=== PATIENT | male | born 1955 | race American Indian/Alaskan Native ===

== ENCOUNTER 2020-11-18 09:26 | Emergency (ER) | payer MEDICAID, SELFPAY ==
[2020-11-18 09:46] VITALS: PULSE 76; RESP 18; TEMP 36.8; O2SAT 94; BMI 29.7
--- NOTE | 2020-11-18 09:57 | W.ED.COVID ---
HPI - COVID General: Chief Complaint: COVID symptoms Stated Complaint: Covid+/ fever/Cough/Fatigue Time Seen by Provider: 11/18/20 09:36 Triage information: Has fever, cough or shortness of breath. Exposure to COVID + person last 14 days History of Present Illness: HPI Narrative: 65-year-old male presents to the emergency room with complaint of fever. Last week he was tested for COVID-19 as well as strep and tested positive for both he completed the course of antibiotics for the strep he still is having a fever at times still has sore throat nausea vomiting and cough. Patient denies history of diabetes hypertension chronic respiratory illness is not on any immune depressants. MD complaint: known COVID positive Prior testing date: 11/11/20 COVID 19 common symptoms: positive fever(s), chills, cough, non-productive cough, dyspnea, fatigue, body aches, throat pain, nasal congestion, nausea and vomiting COVID 19 other sytmptoms: negative chest pain or requiring oxygen Onset (ago): day(s) (+10d) Severity: mild Treatment prior to arrival: antibiotics (For positive strep test) COVID Results: No Data to Display Review of Systems Const: Reports: fever(s), chills, body aches and fatigue ENMT: Reports: throat pain and nasal congestion Card: Denies: chest pain, edema, dyspnea on exertion or orthopnea Resp: Reports: dyspnea and non-productive cough GI: Reports: nausea and vomiting : Denies: flank pain, dysuria, urinary frequency or urinary urgency Skin/Breast: Denies: rash or pruritus Physical Exam Const: COMMON NORMALS: no acute distress GENERAL APPEARANCE: cooperative and comfortable ORIENTATION/CONSCIOUSNESS: Yes awake, Yes oriented to person, Yes oriented to place and Yes oriented to time HENMT: COMMON NORMALS: normocephalic, atraumatic and hearing grossly normal bilaterally HEAD & SCALP: normocephalic and atraumatic Neck/C-Spine: COMMON NORMALS: no JVD Resp: COMMON NORMALS: normal respiratory effort, No retractions, No use of accessory muscles and clear to auscultation bilaterally AUSCULTATION: clear to auscultation bilaterally Cardio: COMMON NORMALS: no JVD, regular rate, regular rhythm and No murmurs present (Cardio) RATE: regular rate RHYTHM: regular rhythm GI: COMMON NORMALS: Soft to palpation and No hepatosplenomegaly present AUSCULTATION: Yes normoactive bowel sounds PALPATION: Yes Soft to palpation, No Tenderness to palpation present (GI), No Guarding due to palpation present (GI) and Yes No hepatosplenomegaly present Extremity: COMMON NORMALS: normal to inspection, capillary refill normal, no clubbing, cyanosis or edema, no calf tenderness and no pedal edema Neuro: SENSORIUM/ORIENTATION: Yes oriented to person, Yes oriented to place and Yes oriented to time Skin: COMMON NORMALS: no rashes or lesions noted GENERAL SKIN EXAM: no rashes or lesions noted Course Vital Signs: Vital signs: Vital Signs Temperature 98.2 F 11/18/20 09:46 Pulse Rate 76 11/18/20 09:46 Respiratory Rate 18 11/18/20 09:46 Pulse Oximetry 94 11/18/20 09:46 MDM - COVID MDM Narrative: Medical decision making narrative: Patient largely has Covid symptoms examination of the throat does not show any significant redness or erythema he has no submandibular lymphadenopathy he is completed the course of antibiotics previously prescribed I would continue with supportive cares. He does not qualify for bam whenever Mab infusion based on his age past medical history and he has an exclusion of being at or greater than 10 days since onset of symptoms. We will go ahead and discharge him home return if has problems. COVID Results: No Data to Display Discharge Plan Discharge Patient Disposition: Home Clinical Impression: COVID-19, Strep pharyngitis Condition: Stable Discharge Orders: Discharge ED (Routine); Ordered 11/18/20 Ordered By: Ángel Ivy Discharge Diet: Usual diet Discharge Activity: Limit activity as instructed Activity Restrictions/Additional Instructions: Tylenol or ibuprofen as needed increase fluid intake. Maintain quarantine as directed by the health department. Return to the emergency room if you have further problems or worsening shortness of breath. Coding Level of Care Code ED Boil [employer] for Carley Gusman
[2020-11-18 10:05] VITALS: RESP 18
[2020-11-18 10:09] VITALS: O2SAT 94
== END 2020-11-18 10:05 | disposition home or self-care (01) ==
LOC: ER 10:10
PROVIDERS: Emergency Provider Family Medicine
DX: U07.1 COVID-19 (principal); J02.0 Streptococcal pharyngitis
CPT/HCPCS: 12345; 99281

== ENCOUNTER 2020-11-23 10:08 | Inpatient (IN) | payer MEDICAID, SELFPAY ==
[2020-11-23] VITALS (14 sets, daily range): BP systolic 111–151; BP diastolic 73–103; PULSE 69–101; RESP 18–20; TEMP 36.8–38.5; O2SAT 83–97; BMI 23.5
--- NOTE | 2020-11-23 10:29 | ECG_ITS ---
[facility] Test Date: 2020-11-23 Pat Name: Martin Paul Department: Room: Gender: Male Customer Trainer: : 1955 Requested By: Wendy Tran Order Number: [id number] Reading MD: BIBI SOL Measurements Intervals [place] Rate: 90 P: 44 [place]: 129 QRS: -37 QRSD: 126 T: -2 QT: 371 QTc: 455 Interpretive Statements SINUS RHYTHM LEFT AXIS DEVIATION [QRS AXIS < -30] RIGHT BUNDLE BRANCH BLOCK [120+ ms QRS DURATION, UPRIGHT V1, 40+ ms S IN I/aVL/V4/V5/V6] No previous ECG available for comparison Electronically Signed On 11-23-2020 18:16:10 CONSTRUCTION TECH by BIBI SOL [email or web address]
--- NOTE | 2020-11-23 10:29 | W.ED.COVID ---
Documented by User: CASSY Aldridge 11/23/20 14:52 HPI - COVID General: Chief Complaint: ER Hold Stated Complaint: Weakness/SOB/ covid symtoms Time Seen by Provider: 11/23/20 10:16 Source: patient Mode of arrival: ambulatory Limitations: no limitations Triage information: Has fever, cough or shortness of breath. Exposure to COVID + person last 14 days History of Present Illness: HPI Narrative: Patient is a 65-year-old male who tested positive for COVID on 11/11 here for complaints of diffuse body aches, shortness of breath, and fevers. Patient was seen here at our facility approximately 5 days ago for COVID but appeared stable at that visit. Provider stated he did not qualify for IV remdesivir or outpatient BAM infusion and was discharged home. Patient tells me since that visit he has continued to worsen. He has been taking oral Tylenol but states he cannot keep it down because he gags. Patient feels like he cannot take a deep breath. MD complaint: known COVID positive Prior covid testing: yes, results known Prior testing date: 11/11/19 COVID 19 common symptoms: positive fever(s), chills, cough, productive cough, dyspnea, fatigue, body aches and headache(s); negative nausea or vomiting COVID 19 other sytmptoms: negative chest pain or confusion Onset (ago): day(s) Severity: moderate Treatment prior to arrival: acetaminophen COVID Results: SARS-CoV-2 Antigen (Rapid) Negative (Negative) 11/23/20 11:20 11/23/20 Review of Systems Const: Reports: fever(s), chills, body aches, fatigue and malaise Eyes: Denies: change in vision, blurry vision or photophobia ENMT: Denies: odynophagia Card: Reports: dyspnea on exertion; Denies: chest pain, palpitations, irregular heart rhythm, edema, swelling of feet/ankles, lightheadedness, syncope, pre-syncope, orthopnea or leg pain with exertion Resp: Reports: dyspnea, productive cough and chest congestion; Denies: wheezing, stridor or hemoptysis GI: Denies: abdominal pain, nausea or vomiting : Denies: flank pain, difficulty urinating, dysuria, urinary frequency or urinary urgency Musc: Denies: neck pain or back pain Skin/Breast: Denies: rash Neuro: Reports: headache(s); Denies: numbness in extremities, weakness in extremities, sensory changes, difficulty walking, dizziness or confusion PFSH ED PFSH: Medical History No significant medical problems Surgical History H/O foot surgery 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 H/O Spinal surgery Family History Other Diabetes Social History Smoking and tobacco status: former smoker Alcohol intake: never Substance/Drug Use: never Lives independently: Yes Household members: family and other Details: brother Marital status: Current occupational status: retired Physical Exam Const: COMMON NORMALS: average body habitus, patient oriented x3, no limitations, healthy appearing, alert and well nourished GENERAL APPEARANCE: cooperative ORIENTATION/CONSCIOUSNESS: Yes awake, Yes oriented to person, Yes oriented to place and Yes oriented to time OTHER: mildly ill appearing HENMT: COMMON NORMALS: normocephalic, atraumatic and EAC's normal HEAD & SCALP: normal to inspection, normocephalic and atraumatic EXTERNAL AUDITORY CANAL: EAC's normal Chest: COMMONS NORMALS: normal inspection of the chest and normal palpation of entire chest wall Resp: EFFORT & INSPECTION: Yes respiratory distress (mild), Yes labored, Yes Actively coughing and Yes other (hypoxic) AUSCULTATION: diminished lung sounds Cardio: COMMON NORMALS: regular rhythm RATE: tachycardic (mild) RHYTHM: regular rhythm Neuro: COMMON NORMALS: patient oriented x3 SENSORIUM/ORIENTATION: Yes alert, Yes oriented to person, Yes oriented to place and Yes oriented to time Skin: COMMON NORMALS: no rashes or lesions noted GENERAL SKIN EXAM: no rashes or lesions noted Course Vital Signs: Vital signs: Vital Signs Temperature 98.6 F 11/23/20 21:44 Pulse Rate 75 11/23/20 23:59 Respiratory Rate 18 11/23/20 23:59 Blood Pressure 151/80 11/23/20 21:44 Pulse Oximetry 90 11/23/20 23:59 MDM - COVID MDM Narrative: Medical decision making narrative: Patient is in respiratory failure secondary to COVID. He was still only satting 88% on 5L NC so was placed on a non-rebreather. Patient will require hospitalization at this time. I have spoken to Dr. Russell who will also evaluate patient speak to hospitalist. Lab Data: Labs: Lab Results 11/23/20 11/23/20 11/23/20 Range/Units 11:20 11:21 11:40 WBC 3.9 L (4.0-10.0) 10^3/ uL RBC 5.03 (4.1-5.3) 10^6/u L Hgb 14.6 (11.7-16.6) g/dL Hct 43.5 (42.0-52.0) % MCV 86.5 (80-94) fL MCH 29.0 (28.0-34.0) pg MCHC 33.6 (30.0-36.0) g/dL RDW 12.2 (12.1-15.1) % Plt Count 224 (130-400) 10^3/c mm MPV 9.3 (7.4-10.4) fL Neut % (Auto) 82.6 % Lymph % (Auto) 10.9 % Butts % (Auto) 5.7 % Eos % (Auto) 0.0 % Baso % (Auto) 0.3 % Neut # (Auto) 3.20 (1.8-7.7) 10^3/u L Lymph # (Auto) 0.4 L (0.8-4.8) 10^3/u L Butts # (Auto) 0.2 (0.2-0.9) 10^3/u L Eos # (Auto) 0.0 (0.0-0.8) 10^3/u L Baso # (Auto) 0.0 (0.0-0.1) 10^3/u L Nucleated RBC % (a uto) 0 % Nucleated RBCs # 0.0 /100WBC PT (12.1-14.9) SECO NDS INR (0.8-1.2) APTT (23.9-36.7) SECO NDS Fibrinogen (174-498) mg/dL D-Dimer (0-0.59) ug/mIFE U Specimen Type Sample Site ABG pH (7.35-7.45) ABG pCO2 (35-45) mmHg ABG pO2 (80.0-100.0) mmH g ABG HCO3 (22-26) mmol/L ABG O2 Saturation ABG Base Excess (-2.0-2.0) mmol/ L Yassine Test A-a O2 Gradient (5-10) mmHg Hematocrit (42-52) % Hgb O2 Saturation (95-100) % Carboxyhemoglobin (0.4-20.1) %THgb Methemoglobin (0.4-1.5) % Total Hemoglobin (14-18) g/dL Ionized Calcium (1.1-1.4) mmol/L O2 Delivery Device O2 Liters/Min % [employer] Machine Operator ID Sodium (136-145) mmol/L Potassium (3.5-5.1) mmol/L Chloride (98-107) mmol/L Carbon Dioxide (22-29) mmol/L Anion Gap (5-19) BUN (8-23) mg/dL Creatinine (0.7-1.2) mg/dL GFR Calculation (90-130) mL/min Glucose (65-115) mg/dL Calculated Osmolal ity (285-295) mOsm/k g Lactic Acid (0.5-2.2) mmol/L Calcium (8.5-10.5) mg/dL Total Bilirubin (0.15-1.2) mg/dL AST (0-40) U/L ALT (0-41) U/L Alkaline Phosphata se (40-130) IU/L Creatine Kinase (39-308) U/L Troponin T Baselin e (0-15) ng/L C-Reactive Protein (0.0-4.9) mg/L Total Protein (6.6-8.7) g/dL Albumin (3.5-5.2) g/dL Globulin (1.3-4.6) g/dL Procalcitonin (0-0.5) ng/mL Influenza Type A A g Negative (Negative) Influenza Type B A g Negative (Negative) SARS-CoV-2 Ag (Rap id) Negative (Negative) 11/23/20 11/23/20 11/23/20 Range/Units 11:40 11:40 11:40 WBC (4.0-10.0) 10^3/ uL RBC (4.1-5.3) 10^6/u L Hgb (11.7-16.6) g/dL Hct (42.0-52.0) % MCV (80-94) fL MCH (28.0-34.0) pg MCHC (30.0-36.0) g/dL RDW (12.1-15.1) % Plt Count (130-400) 10^3/c mm MPV (7.4-10.4) fL Neut % (Auto) % Lymph % (Auto) % Butts % (Auto) % Eos % (Auto) % Baso % (Auto) % Neut # (Auto) (1.8-7.7) 10^3/u L Lymph # (Auto) (0.8-4.8) 10^3/u L Butts # (Auto) (0.2-0.9) 10^3/u L Eos # (Auto) (0.0-0.8) 10^3/u L Baso # (Auto) (0.0-0.1) 10^3/u L Nucleated RBC % (a uto) % Nucleated RBCs # /100WBC PT 13.80 (12.1-14.9) SECO NDS INR 1.03 (0.8-1.2) APTT 31.7 (23.9-36.7) SECO NDS Fibrinogen 576 H (174-498) mg/dL D-Dimer 0.63 H (0-0.59) ug/mIFE U Specimen Type Sample Site ABG pH (7.35-7.45) ABG pCO2 (35-45) mmHg ABG pO2 (80.0-100.0) mmH g ABG HCO3 (22-26) mmol/L ABG O2 Saturation ABG Base Excess (-2.0-2.0) mmol/ L Yassine Test A-a O2 Gradient (5-10) mmHg Hematocrit (42-52) % Hgb O2 Saturation (95-100) % Carboxyhemoglobin (0.4-20.1) %THgb Methemoglobin (0.4-1.5) % Total Hemoglobin (14-18) g/dL Ionized Calcium (1.1-1.4) mmol/L O2 Delivery Device O2 Liters/Min % [employer] Machine Operator ID Sodium 135 L (136-145) mmol/L Potassium 3.9 (3.5-5.1) mmol/L Chloride 98 (98-107) mmol/L Carbon Dioxide 25 (22-29) mmol/L Anion Gap 15.9 (5-19) BUN 18 (8-23) mg/dL Creatinine 0.7 (0.7-1.2) mg/dL GFR Calculation 113.9 (90-130) mL/min Glucose 126 H (65-115) mg/dL Calculated Osmolal ity 283 L (285-295) mOsm/k g Lactic Acid 1.5 (0.5-2.2) mmol/L Calcium 8.0 L (8.5-10.5) mg/dL Total Bilirubin 0.6 (0.15-1.2) mg/dL AST 79 H (0-40) U/L ALT 54 H (0-41) U/L Alkaline Phosphata se 74 (40-130) IU/L Creatine Kinase 238 (39-308) U/L Troponin T Baselin e (0-15) ng/L C-Reactive Protein 75.0 H (0.0-4.9) mg/L Total Protein 5.9 L (6.6-8.7) g/dL Albumin 3.4 L (3.5-5.2) g/dL Globulin 2.5 (1.3-4.6) g/dL Procalcitonin 6.09 H (0-0.5) ng/mL Influenza Type A A g (Negative) Influenza Type B A g (Negative) SARS-CoV-2 Ag (Rap id) (Negative) 11/23/20 11/23/20 Range/Units 11:40 13:07 WBC (4.0-10.0) 10^3/ uL RBC (4.1-5.3) 10^6/u L Hgb (11.7-16.6) g/dL Hct (42.0-52.0) % MCV (80-94) fL MCH (28.0-34.0) pg MCHC (30.0-36.0) g/dL RDW (12.1-15.1) % Plt Count (130-400) 10^3/c mm MPV (7.4-10.4) fL Neut % (Auto) % Lymph % (Auto) % Butts % (Auto) % Eos % (Auto) % Baso % (Auto) % Neut # (Auto) (1.8-7.7) 10^3/u L Lymph # (Auto) (0.8-4.8) 10^3/u L Butts # (Auto) (0.2-0.9) 10^3/u L Eos # (Auto) (0.0-0.8) 10^3/u L Baso # (Auto) (0.0-0.1) 10^3/u L Nucleated RBC % (a uto) % Nucleated RBCs # /100WBC PT (12.1-14.9) SECO NDS INR (0.8-1.2) APTT (23.9-36.7) SECO NDS Fibrinogen (174-498) mg/dL D-Dimer (0-0.59) ug/mIFE U Specimen Type Arterial Sample Site Radial, left ABG pH 7.51 H (7.35-7.45) ABG pCO2 34.5 L (35-45) mmHg ABG pO2 71.1 L (80.0-100.0) mmH g ABG HCO3 27.8 H (22-26) mmol/L ABG O2 Saturation 97.1 ABG Base Excess 5.0 H (-2.0-2.0) mmol/ L Yassine Test Pos A-a O2 Gradient 4.7 L (5-10) mmHg Hematocrit 44.7 (42-52) % Hgb O2 Saturation 95.3 (95-100) % Carboxyhemoglobin 1.2 (0.4-20.1) %THgb Methemoglobin 0.7 (0.4-1.5) % Total Hemoglobin 14.6 (14-18) g/dL Ionized Calcium 1.1 (1.1-1.4) mmol/L O2 Delivery Device Nrb O2 Liters/Min 15.0 % [employer] Machine Operator ID Cak Sodium 137.0 (136-145) mmol/L Potassium 3.6 (3.5-5.1) mmol/L Chloride (98-107) mmol/L Carbon Dioxide (22-29) mmol/L Anion Gap (5-19) BUN (8-23) mg/dL Creatinine (0.7-1.2) mg/dL GFR Calculation (90-130) mL/min Glucose 123.0 H (65-115) mg/dL Calculated Osmolal ity (285-295) mOsm/k g Lactic Acid (0.5-2.2) mmol/L Calcium (8.5-10.5) mg/dL Total Bilirubin (0.15-1.2) mg/dL AST (0-40) U/L ALT (0-41) U/L Alkaline Phosphata se (40-130) IU/L Creatine Kinase (39-308) U/L Troponin T Baselin e 7 (0-15) ng/L C-Reactive Protein (0.0-4.9) mg/L Total Protein (6.6-8.7) g/dL Albumin (3.5-5.2) g/dL Globulin (1.3-4.6) g/dL Procalcitonin (0-0.5) ng/mL Influenza Type A A g (Negative) Influenza Type B A g (Negative) SARS-CoV-2 Ag (Rap id) (Negative) Imaging Data: CXR: Radiologist's impression: [address] [address] XRay Report Signed Patient: Luis Paul #: [id number] : 1955cct#:[id number] Age/Sex: 65 / MADM Date: 11/23/20 Loc: [facility]/Bed: Attending Dr: Ordering Provider/Ordering MD: Wendy Tran Date of Service: 11/23/20 Procedure(s): XR chest 1V portable [id number] Accession Number(s): [id number] Report Number: [id number] PROCEDURE INFORMATION: Exam: XR Chest, 1 View Exam date and time: 11/23/2020 10:48 AM Age: 65 years old Clinical indication: Shortness of breath; Additional info: Covid TECHNIQUE: Imaging protocol: XR of the chest Views: 1 view. COMPARISON: No relevant prior studies available. FINDINGS: Lungs: There is mild hazy interstitial prominence greater on the right side which could indicate an early or developing interstitial pneumonia. Pleural space: Unremarkable. No pleural effusion. No pneumothorax. Heart/Mediastinum: Unremarkable. No cardiomegaly. Bones/joints: Unremarkable. XR/XR chest 1V portable [id number] IMPRESSION: Mild haziness of the pulmonary interstitium suggesting mild or early interstitial pneumonia. Dictated By:Donovan Mitchell Signed By:Donovan MitchellSignmychal Date/Time:11/23/20 1135 DD/ 1134 COVID Results: SARS-CoV-2 Antigen (Rapid) Negative (Negative) 11/23/20 11:20 11/23/20 Discharge Plan Discharge Patient Disposition: Admitted As Inpatient Admit Provider: Obey Carroll Clinical Impression: COVID-19, Sepsis, Respiratory failure, unspecified with hypoxia Condition: Stable Coding Level of Care Code ED Automotive Warranty Administrator for Chg Fwd Exam Detailed Documented by User: Estefany Russell MD, [facility] [place] 11/24/20 00:29 HPI - COVID General: Chief Complaint: ER Hold Stated Complaint: Weakness/SOB/ covid symtoms Time Seen by Provider: 11/23/20 10:16 COVID Results: SARS-CoV-2 Antigen (Rapid) Negative (Negative) 11/23/20 11:20 11/23/20 [facility] ED PFSH: Medical History No significant medical problems Surgical History H/O foot surgery 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 H/O Spinal surgery Family History Other Diabetes Social History Smoking and tobacco status: former smoker Alcohol intake: never Substance/Drug Use: never Lives independently: Yes Household members: family and other Details: brother Marital status: Current occupational status: retired Course Vital Signs: Vital signs: Vital Signs Temperature 98.6 F 11/23/20 21:44 Pulse Rate 75 11/23/20 23:59 Respiratory Rate 18 11/23/20 23:59 Blood Pressure 151/80 11/23/20 21:44 Pulse Oximetry 90 11/23/20 23:59 MDM - COVID MDM Narrative: Medical decision making narrative: Kindly reviewed the midlevel providers note for complete history and physical. This is a 65-year-old male diagnosed with COVID-19. He is hypoxic and requiring high flow oxygen to maintain his oxygen saturation. He is admitted to the viral ICU for evaluation and management of his Covid pneumonia. Medical Records: Attestation: I reviewed the patient's medical records. Lab Data: Attestation: I reviewed the patient's lab results. Labs: Lab Results 11/23/20 11/23/20 11/23/20 Range/Units 11:20 11:21 11:40 WBC 3.9 L (4.0-10.0) 10^3/ uL RBC 5.03 (4.1-5.3) 10^6/u L Hgb 14.6 (11.7-16.6) g/dL Hct 43.5 (42.0-52.0) % MCV 86.5 (80-94) fL MCH 29.0 (28.0-34.0) pg MCHC 33.6 (30.0-36.0) g/dL RDW 12.2 (12.1-15.1) % Plt Count 224 (130-400) 10^3/c mm MPV 9.3 (7.4-10.4) fL Neut % (Auto) 82.6 % Lymph % (Auto) 10.9 % Butts % (Auto) 5.7 % Eos % (Auto) 0.0 % Baso % (Auto) 0.3 % Neut # (Auto) 3.20 (1.8-7.7) 10^3/u L Lymph # (Auto) 0.4 L (0.8-4.8) 10^3/u L Butts # (Auto) 0.2 (0.2-0.9) 10^3/u L Eos # (Auto) 0.0 (0.0-0.8) 10^3/u L Baso # (Auto) 0.0 (0.0-0.1) 10^3/u L Nucleated RBC % (a uto) 0 % Nucleated RBCs # 0.0 /100WBC PT (12.1-14.9) SECO NDS INR (0.8-1.2) APTT (23.9-36.7) SECO NDS Fibrinogen (174-498) mg/dL D-Dimer (0-0.59) ug/mIFE U Specimen Type Sample Site ABG pH (7.35-7.45) ABG pCO2 (35-45) mmHg ABG pO2 (80.0-100.0) mmH g ABG HCO3 (22-26) mmol/L ABG O2 Saturation ABG Base Excess (-2.0-2.0) mmol/ L Yassine Test A-a O2 Gradient (5-10) mmHg Hematocrit (42-52) % Hgb O2 Saturation (95-100) % Carboxyhemoglobin (0.4-20.1) %THgb Methemoglobin (0.4-1.5) % Total Hemoglobin (14-18) g/dL Ionized Calcium (1.1-1.4) mmol/L O2 Delivery Device O2 Liters/Min % [employer] Machine Operator ID Sodium (136-145) mmol/L Potassium (3.5-5.1) mmol/L Chloride (98-107) mmol/L Carbon Dioxide (22-29) mmol/L Anion Gap (5-19) BUN (8-23) mg/dL Creatinine (0.7-1.2) mg/dL GFR Calculation (90-130) mL/min Glucose (65-115) mg/dL Calculated Osmolal ity (285-295) mOsm/k g Lactic Acid (0.5-2.2) mmol/L Calcium (8.5-10.5) mg/dL Total Bilirubin (0.15-1.2) mg/dL AST (0-40) U/L ALT (0-41) U/L Alkaline Phosphata se (40-130) IU/L Creatine Kinase (39-308) U/L Troponin T Baselin e (0-15) ng/L C-Reactive Protein (0.0-4.9) mg/L Total Protein (6.6-8.7) g/dL Albumin (3.5-5.2) g/dL Globulin (1.3-4.6) g/dL Procalcitonin (0-0.5) ng/mL Influenza Type A A g Negative (Negative) Influenza Type B A g Negative (Negative) SARS-CoV-2 Ag (Rap id) Negative (Negative) 11/23/20 11/23/20 11/23/20 Range/Units 11:40 11:40 11:40 WBC (4.0-10.0) 10^3/ uL RBC (4.1-5.3) 10^6/u L Hgb (11.7-16.6) g/dL Hct (42.0-52.0) % MCV (80-94) fL MCH (28.0-34.0) pg MCHC (30.0-36.0) g/dL RDW (12.1-15.1) % Plt Count (130-400) 10^3/c mm MPV (7.4-10.4) fL Neut % (Auto) % Lymph % (Auto) % Butts % (Auto) % Eos % (Auto) % Baso % (Auto) % Neut # (Auto) (1.8-7.7) 10^3/u L Lymph # (Auto) (0.8-4.8) 10^3/u L Butts # (Auto) (0.2-0.9) 10^3/u L Eos # (Auto) (0.0-0.8) 10^3/u L Baso # (Auto) (0.0-0.1) 10^3/u L Nucleated RBC % (a uto) % Nucleated RBCs # /100WBC PT 13.80 (12.1-14.9) SECO NDS INR 1.03 (0.8-1.2) APTT 31.7 (23.9-36.7) SECO NDS Fibrinogen 576 H (174-498) mg/dL D-Dimer 0.63 H (0-0.59) ug/mIFE U Specimen Type Sample Site ABG pH (7.35-7.45) ABG pCO2 (35-45) mmHg ABG pO2 (80.0-100.0) mmH g ABG HCO3 (22-26) mmol/L ABG O2 Saturation ABG Base Excess (-2.0-2.0) mmol/ L Yassine Test A-a O2 Gradient (5-10) mmHg Hematocrit (42-52) % Hgb O2 Saturation (95-100) % Carboxyhemoglobin (0.4-20.1) %THgb Methemoglobin (0.4-1.5) % Total Hemoglobin (14-18) g/dL Ionized Calcium (1.1-1.4) mmol/L O2 Delivery Device O2 Liters/Min % [employer] Machine Operator ID Sodium 135 L (136-145) mmol/L Potassium 3.9 (3.5-5.1) mmol/L Chloride 98 (98-107) mmol/L Carbon Dioxide 25 (22-29) mmol/L Anion Gap 15.9 (5-19) BUN 18 (8-23) mg/dL Creatinine 0.7 (0.7-1.2) mg/dL GFR Calculation 113.9 (90-130) mL/min Glucose 126 H (65-115) mg/dL Calculated Osmolal ity 283 L (285-295) mOsm/k g Lactic Acid 1.5 (0.5-2.2) mmol/L Calcium 8.0 L (8.5-10.5) mg/dL Total Bilirubin 0.6 (0.15-1.2) mg/dL AST 79 H (0-40) U/L ALT 54 H (0-41) U/L Alkaline Phosphata se 74 (40-130) IU/L Creatine Kinase 238 (39-308) U/L Troponin T Baselin e (0-15) ng/L C-Reactive Protein 75.0 H (0.0-4.9) mg/L Total Protein 5.9 L (6.6-8.7) g/dL Albumin 3.4 L (3.5-5.2) g/dL Globulin 2.5 (1.3-4.6) g/dL Procalcitonin 6.09 H (0-0.5) ng/mL Influenza Type A A g (Negative) Influenza Type B A g (Negative) SARS-CoV-2 Ag (Rap id) (Negative) 11/23/20 11/23/20 Range/Units 11:40 13:07 WBC (4.0-10.0) 10^3/ uL RBC (4.1-5.3) 10^6/u L Hgb (11.7-16.6) g/dL Hct (42.0-52.0) % MCV (80-94) fL MCH (28.0-34.0) pg MCHC (30.0-36.0) g/dL RDW (12.1-15.1) % Plt Count (130-400) 10^3/c mm MPV (7.4-10.4) fL Neut % (Auto) % Lymph % (Auto) % Butts % (Auto) % Eos % (Auto) % Baso % (Auto) % Neut # (Auto) (1.8-7.7) 10^3/u L Lymph # (Auto) (0.8-4.8) 10^3/u L Butts # (Auto) (0.2-0.9) 10^3/u L Eos # (Auto) (0.0-0.8) 10^3/u L Baso # (Auto) (0.0-0.1) 10^3/u L Nucleated RBC % (a uto) % Nucleated RBCs # /100WBC PT (12.1-14.9) SECO NDS INR (0.8-1.2) APTT (23.9-36.7) SECO NDS Fibrinogen (174-498) mg/dL D-Dimer (0-0.59) ug/mIFE U Specimen Type Arterial Sample Site Radial, left ABG pH 7.51 H (7.35-7.45) ABG pCO2 34.5 L (35-45) mmHg ABG pO2 71.1 L (80.0-100.0) mmH g ABG HCO3 27.8 H (22-26) mmol/L ABG O2 Saturation 97.1 ABG Base Excess 5.0 H (-2.0-2.0) mmol/ L Yassine Test Pos A-a O2 Gradient 4.7 L (5-10) mmHg Hematocrit 44.7 (42-52) % Hgb O2 Saturation 95.3 (95-100) % Carboxyhemoglobin 1.2 (0.4-20.1) %THgb Methemoglobin 0.7 (0.4-1.5) % Total Hemoglobin 14.6 (14-18) g/dL Ionized Calcium 1.1 (1.1-1.4) mmol/L O2 Delivery Device Nrb O2 Liters/Min 15.0 % [employer] Soaping Machine Operator ID Cak Sodium 137.0 (136-145) mmol/L Potassium 3.6 (3.5-5.1) mmol/L Chloride (98-107) mmol/L Carbon Dioxide (22-29) mmol/L Anion Gap (5-19) BUN (8-23) mg/dL Creatinine (0.7-1.2) mg/dL GFR Calculation (90-130) mL/min Glucose 123.0 H (65-115) mg/dL Calculated Osmolal ity (285-295) mOsm/k g Lactic Acid (0.5-2.2) mmol/L Calcium (8.5-10.5) mg/dL Total Bilirubin (0.15-1.2) mg/dL AST (0-40) U/L ALT (0-41) U/L Alkaline Phosphata se (40-130) IU/L Creatine Kinase (39-308) U/L Troponin T Baselin e 7 (0-15) ng/L C-Reactive Protein (0.0-4.9) mg/L Total Protein (6.6-8.7) g/dL Albumin (3.5-5.2) g/dL Globulin (1.3-4.6) g/dL Procalcitonin (0-0.5) ng/mL Influenza Type A A g (Negative) Influenza Type B A g (Negative) SARS-CoV-2 Ag (Rap id) (Negative) COVID Results: SARS-CoV-2 Antigen (Rapid) Negative (Negative) 11/23/20 11:20 11/23/20 Critical Care Time Critical Care Time: Critical Care Time: Yes Total Critical Care Time: 60 Attestation: This case had a high probability of a clinically significant, sudden, or life threatening deterioration of this patient's condition which required my full and direct attention, intervention and personal management. Discharge Plan Discharge Patient Disposition: Admitted As Inpatient Admit Provider: Obey Carroll Clinical Impression: COVID-19, Sepsis, Respiratory failure, unspecified with hypoxia Condition: Stable Coding Level of Care Code ED Automotive Warranty Administrator for Chg Fwd Exam Detailed
[2020-11-23 11:57] LABS: Basophils % 0.3 %; Hematocrit 43.5 % (42.0-52.0); Hemoglobin 14.6 g/dL (11.7-16.6); Lymphocytes # 0.4 10^3/uL (0.8-4.8); Lymphocytes % 10.9 %; Mean Corpuscular HGB Conc 33.6 g/dL (30.0-36.0); Mean Corpuscular Volume 86.5 fL (80-94); Mean Platelet Volume 9.3 fL (7.4-10.4); Monocytes # 0.2 10^3/uL (0.2-0.9); Monocytes % 5.7 %; Neutrophils % 82.6 %; Nucleated Red Blood Cells % 0 %; Platelet Count 224 10^3/cmm (130-400); Red Blood Count 5.03 10^6/uL (4.1-5.3); Red Cell Distribution Width 12.2 % (12.1-15.1); White Blood Count 3.9 10^3/uL (4.0-10.0)
[2020-11-23 12:03] LABS: SARS Covid-2 Antigen Negative (Negative)
[2020-11-23 12:03] LABS: Influenza A by IFA Negative (Negative); Influenza B by IFA Negative (Negative)
[2020-11-23 12:18] LABS: Lactic Sepsis W/Reflex 1.5 mmol/L (0.5-2.2)
[2020-11-23 12:19] LABS: Troponin(5th) Baseline 7 ng/L (0-15)
[2020-11-23 12:21] LABS: INR 1.03 (0.8-1.2); Partial Thromboplastin Time 31.7 SECONDS (23.9-36.7)
[2020-11-23 12:22] LABS: Fibrinogen 576 mg/dL (174-498)
[2020-11-23 12:24] LABS: D Dimer 0.63 ug/mIFEU (0-0.59)
[2020-11-23 12:27] LABS: Procalcitonin 6.09 ng/mL (0-0.5)
--- NOTE | 2020-11-23 12:29 | ECG_ITS ---
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: : 1955 Requested By: Wendy Tran Order Number: [id number] Reading MD: BIBI SOL Measurements Intervals Glady Rate: 89 P: 44 DE: 136 QRS: -25 QRSD: 130 T: -4 QT: 403 QTc: 491 Interpretive Statements SINUS RHYTHM WITH FREQUENT SUPRAVENTRICULAR PREMATURE COMPLEXES BORDERLINE LEFT AXIS DEVIATION [QRS AXIS < -20] RIGHT BUNDLE BRANCH BLOCK [120+ ms QRS DURATION, UPRIGHT V1, 40+ ms S IN I/aVL/V4/V5/V6] Compared to ECG 11/23/2020 10:54:40 No significant changes Electronically Signed On 11-23-2020 18:17:31 PRIVATE BRANCH EXCHANGE SERVICE ADVISOR by BIBI SOL [id number]
[2020-11-23 12:38] LABS: Alanine Aminotransferase 54 U/L (0-41); Albumin Level 3.4 g/dL (3.5-5.2); Alkaline Phosphatase 74 IU/L (40-130); Anion Gap 15.9 (5-19); Aspartate Amino Transferase 79 U/L (0-40); Blood Urea Nitrogen 18 mg/dL (8-23); Carbon Dioxide 25 mmol/L (22-29); Chloride 98 mmol/L (98-107); Creatine Phosphokinase 238 U/L (39-308); Globulin 2.5 g/dL (1.3-4.6); Glomerular Filtration Rate 113.9 mL/min (90-130); Glucose 126 mg/dL (65-115); Osmolality Calculated 283 mOsm/kg (285-295); Potassium 3.9 mmol/L (3.5-5.1); Sodium 135 mmol/L (136-145); Total Bilirubin 0.6 mg/dL (0.15-1.2); Total Protein 5.9 g/dL (6.6-8.7)
[2020-11-23 13:18] LABS: ABG PCO2 34.5 mmHg (35-45); ABG PH Result 7.51 (7.35-7.45); Alveolar-Arterial Oxygen Gradi 4.7 mmHg (5-10); Arterial Blood Gas Hematocrit 44.7 % (42-52); Blood Gas Allen Test Pos; Blood Gas Operator Identificat CAK; Blood Gas Sample Site Radial, left; Blood Gas Sample Type Arterial; Carboxyhemoglobin 1.2 %THgb (0.4-20.1); HCO3 ABG 27.8 mmol/L (22-26); HGB O2 Sat 95.3 % (95-100); Ionized Calcium Level - ABG 1.1 mmol/L (1.1-1.4); Methemoglobin 0.7 % (0.4-1.5); Oxygen Device NRB; Oxygen Saturation ABG 97.1; PO2 ABG 71.1 mmHg (80.0-100.0); Potassium Level - ABG 3.6 mmol/L (3.5-5.0); Total Hemoglobin 14.6 g/dL (14-18)
[2020-11-23] MEDS: cefTRIAXone 1,000 MG in sodium chloride 0.9% (plus) 50 ML 100 MG IV (14:06)
--- NOTE | 2020-11-23 16:27 | PC.NURSE ---
EKG done at 1625 and shown to ER doctor
--- NOTE | 2020-11-23 16:29 | ECG_ITS ---
[facility] Test Date: 2020-11-23 Pat Name: Martni Paul Department: Room: Gender: Male Lay Health Advocate: : 1955 Requested By: Wendy Tran Order Number: [id number] Reading MD: BIBI SOL Measurements Intervals [place] Rate: 79 P: 57 WI: 133 QRS: -9 QRSD: 129 T: 8 QT: 416 QTc: 480 Interpretive Statements SINUS RHYTHM WITH OCCASIONAL VENTRICULAR PREMATURE COMPLEXES WITH OCCASIONAL SUPRAVENTRICULAR PREMATURE COMPLEXES RIGHT BUNDLE BRANCH BLOCK [120+ ms QRS DURATION, UPRIGHT V1, 40+ ms S IN I/aVL/V4/V5/V6] Compared to ECG 11/23/2020 12:39:26 Ventricular premature complex(es) now present Electronically Signed On 11-23-2020 18:17:15 FOREST PRODUCTS GATHERER by BIBI SOL [id number]
--- NOTE | 2020-11-23 17:11 | P.HP_ITS ---
Providers/Chief Complaint Chief Complaint: Weakness/SOB/ covid symtoms History of Present Illness Pleasant 65-year-old gentleman without much past medical history, not normally on any medications, was diagnosed with COVID-19 on 11/11, with symptoms starting sometime before that, was treated with Augmentin for possible strep throat, and appears also may have received a dose of ivermectin, presented to ER due to progressive, body aches, shortness of breath, fevers. Was previously assessed and did not qualify for monoclonal antibody infusion. Unfortunately continued to worsen. Noted hypoxic in ER, due to which was started on nonrebreather oxygen. ABG 7.51/34.5/71.1/27.8. Subsequent transition to high flow cannula. Saturations in the low to mid 90s on 80% FiO2, 30 L. D-dimer is 0.63. CRP 75. He has some pleuritic chest discomfort, but no constant pain. Troponin is not elevated, and without positive delta 2 hours. EKG with RBBB, occasional PAC. He is febrile, 1-1.3. Procalcitonin is 6.09. Chest x-ray shows mild haziness of pulmonary interstitium suggesting mild or early interstitial pneumonia. Rapid influenza is negative. Rapid COVID-19 is negative. Due to concern for superimposed bacterial pneumonia he received ceftriaxone dose in ER, 1 g. To me he reports he is currently much more comfortable with a high flow cannula. Reports that he was having quite a bit of diarrhea previously, but this is resolved. Denies any headache. Denies any nausea or vomiting. He is coughing, but cough is nonproductive. He names his brother Toby as surrogate decision maker on his behalf in case he could not make his own decisions. Review of Systems Const: Reports: fever(s), body aches and malaise; Denies: chills Eyes: Denies: change in vision or eye redness ENMT: Denies: throat pain, oral sores or ear or mastoid pain Card: Denies: chest pain, edema, pre-syncope or dyspnea on exertion Resp: Reports: dyspnea, non-productive cough and pain on inspiration; Denies: productive cough, change in phlegm color or hemoptysis GI: Denies: abdominal pain, nausea, vomiting, diarrhea, constipation, hematochezia or melena : Denies: flank pain, difficulty urinating, urinary frequency or hematuria Musc: Reports: joint pain (chronic L ankle pain); Denies: back pain, joint swelling or joint redness Skin/Breast: Denies: rash, sores or new lesions Neuro: Denies: headache(s), numbness in extremities, weakness in extremities, dizziness, confusion or seizure-like activity Endo: Denies: polyuria or polydipsia Nate/Lymph: Denies: easy bleeding or purpura All/Imm: Denies: urticaria, throat swelling or tongue swelling Medications/Allergies Home Medications Medication Instructions Recorded Confirmed Last Taken Type acetaminophen [Tylenol Extra 1,000 mg PO PRN 11/23/20 11/23/20 Unknown History Strength] amoxicillin-pot clavulanate 1 tab PO Q12H 11/23/20 11/23/20 11/22/20 History ascorbic acid (vitamin C) 1,000 mg PO DAILY 11/23/20 11/23/20 11/22/20 History ergocalciferol (vitamin D2) See Rx Instructions .ROUTE .COMPLEX 11/23/20 11/23/20 11/22/20 History ivermectin 12 mg PO ONCE 11/23/20 11/23/20 11/21/20 History zinc amino acid chelate 50 mg PO DAILY 11/23/20 11/23/20 11/22/20 History Allergies Allergy/AdvReac Type Severity Reaction Status Date / Time No Known Allergies Allergy Verified 11/23/20 12:26 PFSH Acute PFSH: Medical History No significant medical problems Surgical History H/O foot surgery 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 H/O Spinal surgery Family History Other Diabetes Social History Smoking and tobacco status: former smoker Alcohol intake: never Substance/Drug Use: never Lives independently: Yes Household members: family and other Details: brother Marital status: Current occupational status: retired Vitals/I&O/Wt Last Vital Signs Temp 98.7 F 11/23/20 14:00 Pulse 75 11/23/20 16:13 Resp 20 H 11/23/20 16:13 BP 143/103 11/23/20 10:15 Pulse Ox 97 11/23/20 16:13 Weight last 48 hrs Weight 68.039 kg Physical Exam Const: COMMON NORMALS: no acute distress, patient oriented x3, healthy appearing and alert GENERAL APPEARANCE: cooperative and comfortable NUTRITIONAL APPEARANCE: overweight ORIENTATION/CONSCIOUSNESS: Yes awake OTHER: With high flow cannula and he is comfortable. Speaking full sentences. HENMT: COMMON NORMALS: oropharynx normal Neck/C-Spine: COMMON NORMALS: no JVD Resp: COMMON NORMALS: normal respiratory effort and clear to auscultation bilaterally AUSCULTATION: clear to auscultation bilaterally Cardio: COMMON NORMALS: no JVD, regular rhythm, S1 normal heart sound present, S2 normal heart sound present and No murmurs present (Cardio) RHYTHM: regular rhythm HEART SOUNDS: S1 normal heart sound present and S2 normal heart sound present GI: COMMON NORMALS: Normal to inspection, nondistended, normoactive bowel sounds present, Soft to palpation and non-tender PALPATION: Yes Soft to palpation Extremity: COMMON NORMALS: no joint enlargement and no pedal edema Neuro: COMMON NORMALS: patient oriented x3 and moves all extremities Skin: COMMON NORMALS: no rashes or lesions noted GENERAL SKIN EXAM: no rashes or lesions noted Data : 11/23/20 11:40 11/23/20 11:40 Micro: Microbiology 11/23/20 11:40 Blood Culture - Preliminary Blood SPECIMEN COLLECTED A&P Assessment and plan (1) Pneumonia due to COVID-19 virus: Oxygen support with heated high flow cannula. Remdesivir, Decadron. Albuterol as needed. If oxygenation stabilizes somewhat consider proning. Admit to viral ICU. Lovenox VT prophylaxis. Monitor CRP, D-dimer. Discussed with patient. He is agreeable with admission and treatment plan. Rdz catheter for accurate I&O. Avoid fluid overload. Status: Acute (2) Respiratory failure, unspecified with hypoxia: As above. PPI GI prophylaxis. Sputum culture. Possible sepsis due to COVID-19. Possible superimposed bacterial pneumonia. Levaquin. Blood culture. Status: Acute Qualifiers: Chronicity: acute Qualified Code(s): J96.01 - Acute respiratory failure with hypoxia (3) Sepsis: Possible sepsis with leukopenia, WBC 3.9. Tachycardia on presentation 101, fever one 1.3. Lactic acid 1.5. Blood culture collected. Antibiotic started. As above. Status: Acute Qualifiers: Acute respiratory failure type: with hypoxia Sepsis acute organ dysfunction status: with acute organ dysfunction Sepsis type: sepsis due to unspecified organism Severe sepsis acute organ dysfunction type: acute re spiratory failure Severe sepsis shock status: without septic shock Qualified Code(s): A41.9 - Sepsis, unspecified organism; R65.20 - Severe sepsis without septic shock; J96.01 - Acute respiratory failure with hypoxia (4) Transaminitis: Mild transaminitis most likely related to COVID-19 infection. Monitor liver parameters. Status: Acute Additional A&P Information Underwent treatment with a course of Augmentin for streptococcal pharyngitis. Attestations Medical Necessity Statement*: Admission of over 2 midnights is admitted for assessment and management of severe COVID-19 pneumonia, respiratory failure, possible superimposed bacterial pneumonia, possible sepsis. Coding Level of Care Code Acute Microsystems Engineer for [facility] Fwd Diagnoses Pneumonia due to COVID-19 virus U07.1; J12.89 Respiratory failure, unspecified with hypoxia J96.01 Chronicity: acute Sepsis A41.9; R65.20; J96.01 Acute respiratory failure type: with hypoxia Sepsis acute organ dysfunction status: with acute organ dysfunction Sepsis type: sepsis due to unspecified organism Severe sepsis acute organ dysfunction type: acute respiratory failure Severe sepsis shock status: without septic shock Transaminitis R74.01
[2020-11-23] MEDS: levoFLOXacin 750 mg Tablet PO (17:13)
[2020-11-23] MEDS: dexamethasone 4 mg/mL INJ 6 MG IVP (17:27)
[2020-11-23] MEDS: remdesivir 200 MG in sodium chloride 0.9% (100 ml) 100 ML 100 MG IV (18:37)
[2020-11-23 18:39] LABS: Troponin 5 6HR 6.25 ng/L (0-15)
[2020-11-23 18:40] LABS: Troponin 5 6HR Delta -0.75 ng/L (0-12)
[2020-11-23] MEDS: pantoprazole DR 40 mg Tablet PO (18:52)
[2020-11-23] MEDS: enoxaparin 40 mg/0.4 mL Syringe SUBCUT (18:52)
--- NOTE | 2020-11-23 19:38 | PC.NURSE ---
Rounded on patient to talk to him about placing urinary catheter. Patient states he does not want one at this time, he is able to get up and use the urinal when he needs to pee.
--- NOTE | 2020-11-23 21:45 | PC.NURSE ---
Patient admit note: Patient arrived to 209 via cart from ED. Report was given to RN from ER nurse. Patient is sitting up in bed awake, alert, able to follow all commands. Patient is on a NRB at 10L. Patient ambulated to the ICU bed well. Patient was placed on bedside monitor et an assessment was performed. After settling into ICU bed, patient was placed on heated high flow nasal cannula, 30L 80% FiO2 by RT. All orders et interventions completed in the ER were reviewed. New orders noted. Plan of care established. Please see physical assessment et vital sign flow sheets for details.
[2020-11-24] VITALS (93 sets, daily range): BP systolic 109–152; BP diastolic 52–86; PULSE 61–94; RESP 5–35; TEMP 36.6–37.1; O2SAT 85–98
--- NOTE | 2020-11-24 02:26 | PC.NURSE ---
Patient refuses the pneumonia et influenza vaccines.
[2020-11-24] MEDS: ascorbic acid 500 mg Tablet 1000 MG PO (09:34)
[2020-11-24] MEDS: ergocalciferol (vitamin D2) 50,000 Unit Capsule 50000 UNIT PO (09:35)
--- NOTE | 2020-11-24 14:20 | P.PN_ITS ---
Subjective Subjective: Interval history: Today he is doing about the same apart from having a mild headache. Breathing is comfortable on high flow cannula. He asks how long he may need to be in the hospital. Vitals/I&O/Wt Last Vital Signs Temp 97.9 F 11/24/20 08:00 Pulse 68 11/24/20 11:44 Resp 16 11/24/20 11:44 BP 126/73 11/24/20 10:00 Pulse Ox 94 11/24/20 11:44 11/23/20 11/24/20 11/24/20 22:59 06:59 14:59 Intake Total 250 / 250 8 / 258 480 / 480 Output Total 300 / 300 250 / 550 Balance -50 / -50 -242 / -292 480 / 480 Weight last 48 hrs Weight 68.039 kg Weight 68.039 kg Physical Exam Const: COMMON NORMALS: no acute distress, patient oriented x3, healthy appearing and alert GENERAL APPEARANCE: cooperative and comfortable NUTRITIONAL APPEARANCE: overweight ORIENTATION/CONSCIOUSNESS: Yes awake OTHER: With high flow cannula and he is comfortable. Speaking full sentences. HENMT: COMMON NORMALS: oropharynx normal Neck/C-Spine: COMMON NORMALS: no JVD Resp: COMMON NORMALS: normal respiratory effort and clear to auscultation bilaterally AUSCULTATION: clear to auscultation bilaterally Cardio: COMMON NORMALS: no JVD, regular rhythm, S1 normal heart sound present, S2 normal heart sound present and No murmurs present (Cardio) RHYTHM: regular rhythm HEART SOUNDS: S1 normal heart sound present and S2 normal heart sound present GI: COMMON NORMALS: Normal to inspection, nondistended, normoactive bowel sounds present, Soft to palpation and non-tender PALPATION: Yes Soft to palpation Extremity: COMMON NORMALS: no joint enlargement and no pedal edema Neuro: COMMON NORMALS: patient oriented x3 and moves all extremities SENSORIUM/ORIENTATION: Yes alert Skin: COMMON NORMALS: no rashes or lesions noted GENERAL SKIN EXAM: no rash es or lesions noted Data : 11/23/20 11:40 11/23/20 11:40 Micro: Microbiology 11/23/20 11:40 Blood Culture - Preliminary Blood NEGATIVE TO DATE A&P Assessment and plan (1) Pneumonia due to COVID-19 virus: He is comfortable on heated high flow oxygen. Saturations in mid 90s. FiO2 80%. 35 L flow. Today he is having mild headache. Apart from that about the same. Did have an episode of loose stool. Continue remdesivir, Decadron. Continue oxygen support, weaning down as tolerating. If remains stable cautiously consider proning. Albuterol as needed. Blood work could not be drawn earlier today, but has been drawn this afternoon and is pending. Lovenox VT prophylaxis. Monitor CRP, D-dimer. Rdz catheter for accurate I&O. Avoid fluid overload. He asked me to call his daughter for an update. I tried but could not reach her on her cell phone. Status: Acute (2) Respiratory failure, unspecified with hypoxia: As above. PPI GI prophylaxis. Sputum culture. Possible sepsis due to COVID-19. Possible superimposed bacterial pneumonia. Levaquin. Blood culture. Status: Acute Qualifiers: Chronicity: acute Qualified Code(s): J96.01 - Acute respiratory failure with hypoxia (3) Sepsis: Possible sepsis with leukopenia, WBC 3.9. Tachycardia on presentation 101, fever one 101.3 on presentation. Sepsis possibly improved. Leukocyte count is pending. Fever appears so far resolved. Tachycardia resolved. Lactic acid 1.5. Blood culture collected. As above. Status: Acute Qualifiers: Acute respiratory failure type: with hypoxia Sepsis acute organ dysfunction status: with acute organ dysfunction Sepsis type: sepsis due to unspecified organism Severe sepsis acute organ dysfunction type: acute respiratory failure Severe sepsis shock status: without septic shock Qualified Code(s): A41.9 - Sepsis, unspecified organism; R65.20 - Severe sepsis without septic shock; J96.01 - Acute respiratory failure with hypoxia (4) Transaminitis: Repeat blood work pending. Monitor. Mild transaminitis most likely related to COVID-19 infection. Status: Acute Additional A&P Information Underwent treatment with a course of Augmentin for streptococcal pharyngitis. Attestations Medical Necessity Statement*: Continue admission for assessment of management of severe COVID-19 pneumonia, possible superimposed bacterial pneumonia, acute respiratory failure. Coding Level of Care Code Acute Roofing Superintendent for [facility] Diagnoses Pneumonia due to COVID-19 virus U07.1; J12.89 Respiratory failure, unspecified with hypoxia J96.01 Chronicity: acute Sepsis A41.9; R65.20; J96.01 Acute respiratory failure type: with hypoxia Sepsis acute organ dysfunction status: with acute organ dysfunction Sepsis type: sepsis due to unspecified organism Severe sepsis acute organ dysfunction type: acute respiratory failure Severe sepsis shock status: without septic shock Transaminitis R74.01
[2020-11-24 14:41] LABS: Hematocrit 42.3 % (42.0-52.0); Hemoglobin 14.5 g/dL (11.7-16.6); Lymphocytes # 0.6 10^3/uL (0.8-4.8); Lymphocytes % 15.7 %; Mean Corpuscular HGB Conc 34.3 g/dL (30.0-36.0); Mean Corpuscular Hemoglobin 29.3 pg (28.0-34.0); Mean Corpuscular Volume 85.5 fL (80-94); Mean Platelet Volume 9.9 fL (7.4-10.4); Monocytes # 0.3 10^3/uL (0.2-0.9); Monocytes % 7.3 %; Neutrophils # 2.83 10^3/uL (1.8-7.7); Neutrophils % 76.5 %; Nucleated Red Blood Cells % 0 %; Platelet Count 283 10^3/cmm (130-400); Red Blood Count 4.95 10^6/uL (4.1-5.3); Red Cell Distribution Width 12.2 % (12.1-15.1); White Blood Count 3.7 10^3/uL (4.0-10.0)
[2020-11-24 14:48] LABS: D Dimer 0.48 ug/mIFEU (0-0.59)
[2020-11-24 15:04] LABS: Alanine Aminotransferase 48 U/L (0-41); Albumin Level 3.3 g/dL (3.5-5.2); Alkaline Phosphatase 71 IU/L (40-130); Anion Gap 14.7 (5-19); Aspartate Amino Transferase 58 U/L (0-40); Blood Urea Nitrogen 20 mg/dL (8-23); C Reactive Protein 52.6 mg/L (0.0-4.9); Calcium 8.5 mg/dL (8.5-10.5); Carbon Dioxide 28 mmol/L (22-29); Chloride 102 mmol/L (98-107); Glomerular Filtration Rate 97.6 mL/min (90-130); Glucose 135 mg/dL (65-115); Osmolality Calculated 297 mOsm/kg (285-295); Potassium 3.7 mmol/L (3.5-5.1); Sodium 141 mmol/L (136-145); Total Bilirubin 0.6 mg/dL (0.15-1.2)
[2020-11-24] MEDS: dexamethasone 4 mg/mL INJ 6 MG IVP (17:08)
[2020-11-24] MEDS: acetaminophen 325 mg Tablet 650 MG PO (17:12)
[2020-11-24] MEDS: pantoprazole DR 40 mg Tablet PO (17:13)
[2020-11-24] MEDS: levoFLOXacin 750 mg Tablet PO (17:13)
[2020-11-24] MEDS: enoxaparin 40 mg/0.4 mL Syringe SUBCUT (17:17)
[2020-11-24] MEDS: remdesivir 100 MG in sodium chloride 0.9% (100 ml) 100 ML IV (17:19)
[2020-11-25] VITALS (94 sets, daily range): BP systolic 112–153; BP diastolic 57–88; PULSE 53–100; RESP 2–38; TEMP 36.6–36.8; O2SAT 82–98; BMI 23.5
[2020-11-25 04:23] LABS: Hematocrit 43.7 % (42.0-52.0); Hemoglobin 14.6 g/dL (11.7-16.6); Lymphocytes # 0.4 10^3/uL (0.8-4.8); Lymphocytes % 10.9 %; Mean Corpuscular HGB Conc 33.4 g/dL (30.0-36.0); Mean Corpuscular Hemoglobin 29.1 pg (28.0-34.0); Mean Corpuscular Volume 87.2 fL (80-94); Mean Platelet Volume 9.8 fL (7.4-10.4); Monocytes # 0.2 10^3/uL (0.2-0.9); Monocytes % 6.7 %; Neutrophils % 82.1 %; Nucleated Red Blood Cells % 0 %; Platelet Count 302 10^3/cmm (130-400); Red Blood Count 5.01 10^6/uL (4.1-5.3); Red Cell Distribution Width 12.2 % (12.1-15.1); White Blood Count 3.3 10^3/uL (4.0-10.0)
[2020-11-25 04:42] LABS: Chloride 101 mmol/L (98-107); Potassium 3.9 mmol/L (3.5-5.1); Sodium 137 mmol/L (136-145)
[2020-11-25 05:24] LABS: Alkaline Phosphatase 67 IU/L (40-130)
[2020-11-25 05:25] LABS: D Dimer 0.37 ug/mIFEU (0-0.59)
[2020-11-25 05:55] LABS: Alanine Aminotransferase 50 U/L (0-41); Albumin Level 2.9 g/dL (3.5-5.2); Anion Gap 14.9 (5-19); Aspartate Amino Transferase 56 U/L (0-40); Blood Urea Nitrogen 23 mg/dL (8-23); Calcium 8.5 mg/dL (8.5-10.5); Carbon Dioxide 25 mmol/L (22-29); Glomerular Filtration Rate 113.9 mL/min (90-130); Glucose 204 mg/dL (65-115); Osmolality Calculated 294 mOsm/kg (285-295); Total Bilirubin 0.6 mg/dL (0.15-1.2); Total Protein 5.9 g/dL (6.6-8.7)
[2020-11-25] MEDS: benzonatate 100 mg Capsule PO ×3 (09:04→21:22)
[2020-11-25] MEDS: zinc gluconate 50 mg Tablet PO (09:04)
[2020-11-25] MEDS: ascorbic acid 500 mg Tablet 1000 MG PO (09:04)
[2020-11-25 09:14] LABS: Thyroid Stimulating Hormone 0.48 uIU/mL (0.27-4.20)
[2020-11-25 09:15] LABS: Procalcitonin 2.67 ng/mL (0-0.5)
[2020-11-25 09:26] LABS: Iron 59 ug/dL (59-158); Percent Saturation 36.6 % (20-50); Total Iron Binding Capacity 161 mcg/dl; Unsaturated Iron Binding 102 ug/dL (112-347)
--- NOTE | 2020-11-25 14:42 | PM.PN ---
Subjective Subjective: Interval history: Hospital course, labs and vitals noted. On examination patient is sitting comfortably in bed on heated high flow saturating 92%. He states he is feeling little better. Diet is better. Denies any nausea, vomiting, headache. Has been doing incentive spirometry and flutter valve regularly. Family proning himself. States appetite is not good. Vitals/I&O/Wt Last Vital Signs Temp 98 F 11/25/20 12:00 Pulse 69 11/25/20 12:30 Resp 11 L 11/25/20 12:30 BP 112/57 11/25/20 12:30 Pulse Ox 96 11/25/20 12:30 11/24/20 11/25/20 11/25/20 22:59 06:59 14:59 Intake Total 100 / 580 250 / 830 500 / 500 Output Total 500 / 1300 200 / 1500 400 / 400 Balance -400 / -720 50 / -670 100 / 100 Weight last 48 hrs Weight 68.039 kg Weight 68.039 kg Physical Exam Const: COMMON NORMALS: no acute distress, patient oriented x3, healthy appearing and alert GENERAL APPEARANCE: cooperative and comfortable NUTRITIONAL APPEARANCE: overweight ORIENTATION/CONSCIOUSNESS: Yes awake OTHER: With high flow cannula and he is comfortable. Speaking full sentences. HENMT: COMMON NORMALS: oropharynx normal Neck/C-Spine: COMMON NORMALS: no JVD Resp: COMMON NORMALS: normal respiratory effort AUSCULTATION: crackles, rhonchi and diminished lung sounds bilateral in the lower lung brar Cardio: COMMON NORMALS: no JVD, regular rhythm, S1 normal heart sound present, S2 normal heart sound present and No murmurs present (Cardio) RHYTHM: regular rhythm HEART SOUNDS: S1 normal heart sound present and S2 normal heart sound present GI: COMMON NORMALS: Normal to inspection, nondistended, normoactive bowel sounds present, Soft to palpation and non-tender PALPATION: Yes Soft to palpation Extremity: COMMON NORMALS: no joint enlargement and no pedal edema Neuro: COMMON NORMALS: patient oriented x3 and moves all extremities SENSORIUM/ORIENTATION: Yes alert Skin: COMMON NORMALS: no rashes or lesions noted GENERAL SKIN EXAM: no rashes or lesions noted Data : 11/25/20 03:20 11/25/20 03:20 Micro: Microbiology 11/23/20 11:40 Blood Culture - Preliminary Blood NEGATIVE TO DATE A&P Assessment and plan (1) Pneumonia due to COVID-19 virus: Status: Acute (2) Respiratory failure, unspecified with hypoxia: Status: Acute Qualifiers: Chronicity: acute Qualified Code(s): J96.01 - Acute respiratory failure with hypoxia (3) Sepsis: Possible sepsis with leukopenia, WBC 3.9. Tachycardia on presentation 101, fever one 101.3 on presentation. Sepsis possibly improved. Leukocyte count is pending. Fever appears so far resolved. Tachycardia resolved. Lactic acid 1.5. Blood culture collected. As above. Status: Acute Qualifiers: Acute respiratory failure type: with hypoxia Sepsis acute organ dysfunction status: with acute organ dysfunction Sepsis type: sepsis due to unspecified organism Severe sepsis acute organ dysfunction type: acute respiratory failure Severe sepsis shock status: without septic shock Qualified Code(s): A41.9 - Sepsis, unspecified organism; R65.20 - Severe sepsis without septic shock; J96.01 - Acute respiratory failure with hypoxia (4) Transaminitis: Most likely secondary to COVID-19 pneumonia. Continue to monitor. Status: Acute (5) Leukopenia: Status: Acute Additional A&P Information Hypoxic respiratory failure because of COVID-19 pneumonia: Continues to be on heated high flow. Wean oxygen supplementation keeping saturation over 90%. Continue with remdesivir to finish a 5-day course. Dexamethasone 6 mg IV daily. DuoNebs every 4 hours, Pulmicort as patient is on heated high flow. Patient had elevated D-dimer on admission but trending down. Given the requirement of high oxygen supplementation will start patient on full dose Eliquis for now. Will monitor for anemia. Patient's pro calcitonin was elevated on admission trending down now. Continue levofloxacin for now for at least 7-day course. Day 3 today. Bacterial antigen, urine Legionella, sputum culture. CT chest without contrast. If patient spikes a fever or elevation of white count or becomes hemodynamically unstable we will broaden the coverage. As patient continues to remain afebrile and procalcitonin trending down we will continue levofloxacin for now. Echocardiogram to check ejection fraction. We will try to get the patient in negative since hypoxic respiratory failure. Switch patient to soft diet from clear liquid diet. Full dose Eliquis as DVT prophylaxis as well. Full code. Out of bed to chair Attestations Medical Necessity Statement*: Requires further hospitalization for management of hypoxic respiratory failure secondary to COVID-19 pneumonia Time Spent in Patient Care: Greater than 35 minutes (>than 50% of time spent in counselling and/or direct pt care on unit). Coding Level of Care Code Acute Elastic Attacher Coverstitch for [facility] Fwd Diagnoses Pneumonia due to COVID-19 virus U07.1; J12.89 Respiratory failure, unspecified with hypoxia J96.01 Chronicity: acute Sepsis A41.9; R65.20; J96.01 Acute respiratory failure type: with hypoxia Sepsis acute organ dysfunction status: with acute organ dysfunction Sepsis type: sepsis due to unspecified organism Severe sepsis acute organ dysfunction type: acute respiratory failure Severe sepsis shock status: without septic shock Transaminitis R74.01 Leukopenia D72.819
--- NOTE | 2020-11-25 14:48 | CTR_ITS ---
PROCEDURE INFORMATION: Exam: CT Chest Without Contrast; Diagnostic Exam date and time: 11/25/2020 3:53 PM Age: 65 years old Clinical indication: Patient HX: Cough; Covid positive; Additional info: Copd/pna TECHNIQUE: Imaging protocol: Diagnostic computed tomography of the chest without contrast. Radiation optimization: All CT scans at this facility use at least one of these dose optimization techniques: automated exposure control; mA and/or kV adjustment per patient size (includes targeted exams where dose is matched to clinical indication); or iterative reconstruction. COMPARISON: CR (CHEST, ) 11/23/2020 10:50 AM RADIATION DOSE METRICS: Total DLP (mGy-cm): 767.89 FINDINGS: Lungs: Yes study mild centrilobular emphysema noted in the upper lungs. Bilateral ground-glass infiltrates demonstrated throughout both lungs, right slightly worse than left. Pleural space: No pleural effusion or pneumothorax noted. Heart: No cardiomegaly. No pericardial effusion. Aorta: Mild atherosclerosis of the thoracic aorta. Lymph nodes: No pathologically enlarged lymph nodes are demonstrated. Liver: 10 mm cyst in the upper portion of the liver. Bones/joints: No acute osseous abnormality demonstrated. Soft tissues: The soft tissues appear unremarkable. CT/CT chest wo con 62502 IMPRESSION: Bilateral ground-glass infiltrates demonstrated throughout both lungs, right slightly worse than left. Commonly reported imaging features of COVID-19 pneumonia are present. Other processes such as influenza pneumonia and organizing pneumonia, as can be seen with drug toxicity and connective tissue disease, can cause a similar imaging pattern. (Reference: Maurice) REFERENCES: Maurice Romo, et al., Radiological Society of [place] Expert Consensus Statement on Reporting Chest CT Findings Related to COVID-19. Endorsed by the Society of Thoracic Radiology, the [place], and RSNA. Published January 24, 2020. Radiation Dose CTDIVOL = (mGy): DLP = 767.89 (mGy-cm)
[2020-11-25] MEDS: ipratropium-albuterol 3 mL Neb INHALATION ×2 (16:37→20:27)
[2020-11-25] MEDS: dexamethasone 4 mg/mL INJ 6 MG IVP (17:33)
[2020-11-25] MEDS: pantoprazole DR 40 mg Tablet PO (17:33)
[2020-11-25] MEDS: apixaban 5 mg Tablet PO (17:33)
[2020-11-25] MEDS: levoFLOXacin 750 mg Tablet PO (17:33)
[2020-11-25] MEDS: remdesivir 100 MG in sodium chloride 0.9% (100 ml) 100 ML IV (17:34)
[2020-11-25] MEDS: amoxicillin-clav 875-125 mg Tablet 1 TAB PO (17:36)
[2020-11-25 20:01] LABS: Globulin 5.2 g/dL (1.3-4.6); Total Protein 8.5 g/dL (6.6-8.7)
[2020-11-25] MEDS: budesonide 0.5 mg/2 mL Neb INHALATION (20:27)
[2020-11-26] VITALS (57 sets, daily range): BP systolic 115–151; BP diastolic 61–97; PULSE 65–101; RESP 2–99; TEMP 36.5–36.8; O2SAT 78–97
[2020-11-26] MEDS: ipratropium-albuterol 3 mL Neb INHALATION ×7 (00:37→23:53)
--- NOTE | 2020-11-26 05:00 | USCV_ITS ---
Martin Paul Age: 65 Gender: M : 1955 Exam Date: 11/26/2020 08:59 Ordering Phys: Klaus Leach MD Technologist: Marques Srinivasan Exam Location: [facility] [place] Indication: CHEST PAIN BP: 151 / 91 HR: 83 Rhythm: Sinus Technical Quality: Technically difficult study MEASUREMENTS (Male / Female) Normal Values 2D ECHO LV Diastolic Diameter PLAX 4.1 cm 4.2 - 5.9 / 3.9 - 5.3 cm LV Systolic Diameter PLAX 2.3 cm IVS Diastolic Thickness 1.0 cm 0.6 - 1.0 / 0.6 - 0.9 cm IVS Systolic Thickness 1.4 cm LVPW Diastolic Thickness 1.5 cm 0.6 - 1.0 / 0.6 - 0.9 cm LVPW Systolic Thickness 1.4 cm LVOT Diameter 2.1 cm LV Ejection Fraction 2D Teich 69.2 % LV Ejection Fraction MOD 2C 65.4 % LV Ejection Fraction 2C AL 65.7 % LA Diameter 3.7 cm LA Width 3.6 cm LA Height 4.7 cm RA Width 3.8 cm RA Height 4.1 cm Aorta at Sinotubular Diameter 3.0 cm M-MODE LV Diastolic Diameter MM 5.5 cm 4.2 - 5.9 / 3.9 - 5.3 cm LV Systolic Diameter MM 3.6 cm LV Ejection Fraction MM Teich 61.9 % IVS Diastolic Thickness MM 0.7 cm 0.6 - 1.0 / 0.6 - 0.9 cm IVS Systolic Thickness MM 1.4 cm LVPW Diastolic Thickness MM 1.5 cm 0.6 - 1.0 / 0.6 - 0.9 cm LVPW Systolic Thickness MM 1.7 cm RV Diastolic Diameter MM 1.6 cm Aortic Annulus Diameter 3.8 cm LA Ao Ratio MM 1.1 MV E Point Septal Separation 0.9 cm DOPPLER AV Peak Velocity 174.0 cm/s LVOT Peak Velocity 124.0 cm/s AV Area Cont Eq vti 3.9 cm squared AV Area Cont Eq pk 2.4 cm squared MV Area PHT 5.0 cm squared Mitral E to A Ratio 0.7 MV E' Velocity 41.0 cm/s Mitral E to MV E' Ratio 8.7 Mitral E to LV E' Lateral Ratio 8.1 Mitral E to LV E' Septal Ratio 9.3 TR Peak Velocity 233.3 cm/s TR Peak Gradient 21.8 mmHg TV Peak E Velocity 95.0 cm/s Right Atrial Pressure 3.0 mmHg Pulmonary Artery Systolic Pressu 24.8 mmHg PV Peak Velocity 126.0 cm/s FINDINGS Left Ventricle Normal left ventricular size and systolic function. LVEF is 55 to 60%. No regional motion abnormalities are seen. Grade 1 diastolic dysfunction. Right Ventricle The right ventricle is normal in size and function. Right Atrium The right atrium is normal in size. Left Atrium The left atrium is normal in size. Mitral Valve Structurally normal mitral valve without significant stenosis or prolapse. There is no mitral regurgitation. Aortic Valve Structurally normal aortic valve without significant sclerosis or stenosis. There is mild aortic regurgitation. Tricuspid Valve Structurally normal tricuspid valve without significant stenosis. Trace tricuspid regurgitation. Insufficient TR jet to calculate RVSP. Pulmonic Valve Structurally normal pulmonic valve without significant stenosis. There is no pulmonic regurgitation. Pericardium Normal pericardium without effusion. Aorta Normal ascending aorta dimension. CONCLUSIONS LV systolic function is normal with EF of 55 to 60%. Grade 1 diastolic dysfunction is seen. Mild aortic regurgitation is present. There is trace tricuspid regurgitation. No comparison studies are available. Andreas Cabrera MD (Electronically Signed) Final Date: 04 December 2020 18:59 S
[2020-11-26 05:16] LABS: Hematocrit 41.2 % (42.0-52.0); Hemoglobin 13.9 g/dL (11.7-16.6); Lymphocytes # 0.4 10^3/uL (0.8-4.8); Lymphocytes % 9.5 %; Mean Corpuscular HGB Conc 33.7 g/dL (30.0-36.0); Mean Corpuscular Volume 85.8 fL (80-94); Mean Platelet Volume 9.4 fL (7.4-10.4); Monocytes # 0.2 10^3/uL (0.2-0.9); Neutrophils # 3.39 10^3/uL (1.8-7.7); Neutrophils % 84.3 %; Nucleated Red Blood Cells % 0 %; Platelet Count 339 10^3/cmm (130-400)
[2020-11-26 05:44] LABS: Fibrinogen 384 mg/dL (174-498)
[2020-11-26 05:48] LABS: D Dimer 0.33 ug/mIFEU (0-0.59)
[2020-11-26 05:58] LABS: Alanine Aminotransferase 39 U/L (0-41); Alkaline Phosphatase 63 IU/L (40-130); Anion Gap 16.5 (5-19); Aspartate Amino Transferase 31 U/L (0-40); Blood Urea Nitrogen 19 mg/dL (8-23); Calcium 8.2 mg/dL (8.5-10.5); Carbon Dioxide 23 mmol/L (22-29); Chloride 103 mmol/L (98-107); Globulin 2.7 g/dL (1.3-4.6); Glomerular Filtration Rate 97.6 mL/min (90-130); Glucose 192 mg/dL (65-115); Osmolality Calculated 295 mOsm/kg (285-295); Potassium 3.5 mmol/L (3.5-5.1); Sodium 139 mmol/L (136-145); Total Bilirubin 0.5 mg/dL (0.15-1.2); Total Protein 5.7 g/dL (6.6-8.7)
--- NOTE | 2020-11-26 06:00 | XR_ITS ---
WS: [id number] Exam: XR chest 1V portable [id number] Date/Time of Exam: 11/26/2020 6:00 AM Reason For Exam: covid Comparison 11/23/2020. Diffuse reticular nodular opacities noted in both lungs. Slight increase in infiltrate in the mid rig ht lung but no other change. The lower lungs remain fully inflated. No pleural effusions. Normal card iomediastinal structures and bony elements. XR/XR chest 1V portable [id number] IMPRESSION: 1. Diffuse reticular nodular opacities noted in both lungs. There is been sligh t increase in infiltrate in the mid right lung since previous study but no othe r change.
[2020-11-26 06:15] LABS: C Reactive Protein 11.5 mg/L (0.0-4.9); Creatine Phosphokinase 87 U/L (39-308); Lactate Dehydrogenase 298 U/L (135-225); NT Pro B Type Natriuretic Pept 101 pg/mL (0-125)
[2020-11-26 06:25] LABS: Estmated Average Glucose 123; Hemoglobin A1C 5.9 % (4.0-6.0)
[2020-11-26 07:35] LABS: Ferritin 1494 ng/mL (30-400)
[2020-11-26] MEDS: budesonide 0.5 mg/2 mL Neb INHALATION ×2 (08:13→20:55)
--- NOTE | 2020-11-26 09:07 | P.PN_ITS ---
Subjective Subjective: Interval history: No acute events overnight. Patient states he is feeling a lot better today. Energy levels and appetite is better. Denies any nausea, vomiting, headache. Working well with incentive spirometry, Acapella. He is also semiproning himself while sleeping. Sat in chair for around 2 hours yesterday. Vitals/I&O/Wt Last Vital Signs Temp 98 F 11/25/20 12:00 Pulse 84 11/26/20 08:15 Resp 22 H 11/26/20 08:15 BP 127/72 11/26/20 06:45 Pulse Ox 92 11/26/20 08:15 11/25/20 11/26/20 11/26/20 22:59 06:59 14:59 Intake Total 1100 / 1600 240 / 1840 120 / 120 Output Total 800 / 1200 300 / 1500 Balance 300 / 400 -60 / 340 120 / 120 Weight last 48 hrs Weight 81 kg Weight 68.039 kg Physical Exam Const: COMMON NORMALS: no acute distress, patient oriented x3, healthy appearing and alert GENERAL APPEARANCE: cooperative and comfortable NUTRITIONAL APPEARANCE: overweight ORIENTATION/CONSCIOUSNESS: Yes awake OTHER: With high flow cannula and he is comfortable. Speaking full sentences. HENMT: COMMON NORMALS: oropharynx normal Neck/C-Spine: COMMON NORMALS: no JVD Resp: COMMON NORMALS: normal respiratory effort AUSCULTATION: crackles, rhonchi and diminished lung sounds bilateral in the lower lung brar Cardio: COMMON NORMALS: no JVD, regular rhythm, S1 normal heart sound present, S2 normal heart sound present and No murmurs present (Cardio) RHYTHM: regular rhythm HEART SOUNDS: S1 normal heart sound present and S2 normal heart sound present GI: COMMON NORMALS: Normal to inspection, nondistended, normoactive bowel sounds present, Soft to palpation and non-tender PALPATION: Yes Soft to palpation Extremity: COMMON NORMALS: no joint enlargement and no pedal edema Neuro: COMMON NORMALS: patient oriented x3 and moves all extremities SENSORIUM/ORIENTATION: Yes alert Skin: COMMON NORMALS: no rashes or lesions noted GENERAL SKIN EXAM: no rashes or lesions noted Data : 11/26/20 04:23 11/26/20 04:23 Micro: Microbiology 11/25/20 14:30 Legionella Urinary Antigen - Final Urine,Voided A&P Assessment and plan (1) Pneumonia due to COVID-19 virus: Status: Acute (2) Respiratory failure, unspecified with hypoxia: Status: Acute Qualifiers: Chronicity: acute Qualified Code(s): J96.01 - Acute respiratory failure with hypoxia (3) Sepsis: Possible sepsis with leukopenia, WBC 3.9. Tachycardia on presentation 101, fever one 101.3 on presentation. Sepsis possibly improved. Leukocyte count is pending. Fever appears so far resolved. Tachycardia resolved. Lactic acid 1.5. Blood culture collected. As above. Status: Acute Qualifiers: Acute respiratory failure type: with hypoxia Sepsis acute organ dysfunction status: with acute organ dysfunction Sepsis type: sepsis due to unspecified organism Severe sepsis acute organ dysfunction type: acute respiratory failure Severe sepsis shock status: without septic shock Qualified Code(s): A41.9 - Sepsis, unspecified organism; R65.20 - Severe sepsis without septic shock; J96.01 - Acute respiratory failure with hypoxia (4) Transaminitis: Most likely secondary to COVID-19 pneumonia. Continue to monitor. Status: Acute (5) Leukopenia: Status: Acute Additional A&P Information Hypoxic respiratory failure because of COVID-19 pneumonia: Continues to be on heated high flow. Wean oxygen supplementation keeping saturation over 90%. Continue with remdesivir to finish a 5-day course. Dexamethasone 6 mg IV daily. DuoNebs every 4 hours, Pulmicort as patient is on heated high flow. Continue full dose Eliquis 5 mg twice daily consulted Patient's pro calcitonin was elevated on admission trending down now. Continue levofloxacin for now for at least 7-day course. Day 4 today. Added Augmentin yesterday. Day 2/5 today. Bacterial antigen, Legionella negative. Sputum culture still awaited. CT chest results appreciated. If patient spikes a fever or elevation of white count or becomes hemodynamically unstable we will broaden the coverage. As patient continues to remain afebrile and procalcitonin trending down we will continue levofloxacin for now. Inflammatory markers trending down. Echocardiogram to check ejection fraction. We will try to get the patient in negative since hypoxic respiratory failure. Switch patient to soft diet from clear liquid diet. Full dose Eliquis as DVT prophylaxis as well. Full code. Out of bed to chair Discharge planning: Home versus LTAC. Patient still requiring high amount of oxygen supplementation to maintain saturation over 90%. Depending on how much oxygen patient is requiring in next couple of days will discuss with patient and family regarding possible transfer to LTAC for further rehabitation. Attestations Medical Necessity Statement*: Requires further hospitalization for management of hypoxic respiratory failure secondary to COVID-19 pneumonia while he still requiring high amount of oxygen supplementation. Time Spent in Patient Care: Greater than 35 minutes (>than 50% of time spent in counselling and/or direct pt care on unit) . Coding Level of Care Code Acute Warehouse Team Member for [facility] Fwd Exam Comprehensive Diagnoses Pneumonia due to COVID-19 virus U07.1; J12.89 Respiratory failure, unspecified with hypoxia J96.01 Chronicity: acute Sepsis A41.9; R65.20; J96.01 Acute respiratory failure type: with hypoxia Sepsis acute organ dysfunction status: with acute organ dysfunction Sepsis type: sepsis due to unspecified organism Severe sepsis acute organ dysfunction type: acute respiratory failure Severe sepsis shock status: without septic shock Transaminitis R74.01 Leukopenia D72.819
[2020-11-26] MEDS: ascorbic acid 500 mg Tablet 1000 MG PO (09:26)
[2020-11-26] MEDS: apixaban 5 mg Tablet PO ×2 (09:26→17:23)
[2020-11-26] MEDS: amoxicillin-clav 875-125 mg Tablet 1 TAB PO ×2 (09:27→17:23)
[2020-11-26] MEDS: benzonatate 100 mg Capsule PO ×3 (09:27→21:08)
[2020-11-26] MEDS: zinc gluconate 50 mg Tablet PO (09:27)
[2020-11-26] MEDS: ergocalciferol (vitamin D2) 50,000 Unit Capsule 50000 UNIT PO (09:30)
--- NOTE | 2020-11-26 17:15 | PC.NURSE ---
IV infiltrated, no IV access at this time. Nurse attempting US guided IV.
[2020-11-26] MEDS: levoFLOXacin 750 mg Tablet PO (17:23)
[2020-11-26] MEDS: pantoprazole DR 40 mg Tablet PO (17:23)
[2020-11-26] MEDS: dexamethasone 4 mg/mL INJ 6 MG IVP (20:04)
[2020-11-26] MEDS: remdesivir 100 MG in sodium chloride 0.9% (100 ml) 100 ML IV (20:07)
[2020-11-27] VITALS (36 sets, daily range): BP systolic 110–163; BP diastolic 54–92; PULSE 72–118; RESP 16–43; TEMP 36.4–36.6; O2SAT 88–94
[2020-11-27] MEDS: ipratropium-albuterol 3 mL Neb INHALATION ×6 (03:10→23:55)
[2020-11-27 05:31] LABS: Fibrinogen 412 mg/dL (174-498)
[2020-11-27 05:34] LABS: D Dimer 0.41 ug/mIFEU (0-0.59)
[2020-11-27 05:52] LABS: Creatine Phosphokinase 66 U/L (39-308); Lactate Dehydrogenase 319 U/L (135-225); NT Pro B Type Natriuretic Pept 71 pg/mL (0-125)
[2020-11-27 06:06] LABS: Ferritin 1253 ng/mL (30-400)
[2020-11-27] MEDS: budesonide 0.5 mg/2 mL Neb INHALATION ×2 (08:42→20:31)
[2020-11-27] MEDS: zinc gluconate 50 mg Tablet PO (09:44)
[2020-11-27] MEDS: apixaban 5 mg Tablet PO ×2 (09:44→17:21)
[2020-11-27] MEDS: benzonatate 100 mg Capsule PO ×3 (09:44→21:00)
[2020-11-27] MEDS: ascorbic acid 500 mg Tablet 1000 MG PO (09:44)
[2020-11-27] MEDS: amoxicillin-clav 875-125 mg Tablet 1 TAB PO ×2 (09:44→17:21)
--- NOTE | 2020-11-27 11:40 | P.PN_ITS ---
Subjective Subjective: Interval history: No acute events overnight. Patient states he is feeling better. Denies any nausea, vomiting, headache. States energy levels are better today. Is getting little out of breath during my conversation with him. Daughter looks comfortable. Appetite is appropriate. Patient was transitioned over to high flow nasal cannula from heated high flow today. Cu rrently on 10 L high flow nasal cannula saturating 94%. Has remained hemodynamically stable and afebrile overnight. Vitals/I&O/Wt Last Vital Signs Temp 97.9 F 11/27/20 04:00 Pulse 100 11/27/20 11:37 Resp 18 11/27/20 11:30 BP 128/78 11/27/20 10:00 Pulse Ox 94 11/27/20 11:30 11/26/20 11/27/20 11/27/20 22:59 06:59 14:59 Intake Total 240 / 480 240 / 240 Output Total 900 / 900 Balance 240 / 480 -900 / -420 240 / 240 Weight last 48 hrs Weight 81.148 kg Weight 81 kg Physical Exam Const: COMMON NORMALS: no acute distress, patient oriented x3, healthy appearing and alert GENERAL APPEARANCE: cooperative and comfortable NUTRITIONAL APPEARANCE: overweight ORIENTATION/CONSCIOUSNESS: Yes awake OTHER: With high flow cannula and he is comfortable. Speaking full sentences. HENMT: COMMON NORMALS: oropharynx normal Neck/C-Spine: COMMON NORMALS: no JVD Resp: COMMON NORMALS: normal respiratory effort AUSCULTATION: crackles, rhonchi and diminished lung sounds bilateral in the lower lung brar Cardio: COMMON NORMALS: no JVD, regular rhythm, S1 normal heart sound present, S2 normal heart sound present and No murmurs present (Cardio) RHYTHM: regular rhythm HEART SOUNDS: S1 normal heart sound present and S2 normal heart sound present GI: COMMON NORMALS: Normal to inspection, nondistended, normoactive bowel sounds present, Soft to palpation and non-tender PALPATION: Yes Soft to palpation Extremity: COMMON NORMALS: no joint enlargement and no pedal edema Neuro: COMMON NORMALS: patient oriented x3 and moves all extremities SENSORIUM/ORIENTATION: Yes alert Skin: COMMON NORMALS: no rashes or lesions noted GENERAL SKIN EXAM: no rashes or lesions noted Data : 11/26/20 04:23 11/26/20 04:23 Micro: Microbiology 11/25/20 14:30 Bacterial Antigens - Final Urine,Voided A&P Assessment and plan (1) Pneumonia due to COVID-19 virus: Status: Acute (2) Respiratory failure, unspecified with hypoxia: Status: Acute Qualifiers: Chronicity: acute Qualified Code(s): J96.01 - Acute respiratory failure with hypoxia (3) Sepsis: Possible sepsis with leukopenia, WBC 3.9. Tachycardia on presentation 101, fever one 101.3 on presentation. Sepsis possibly improved. Leukocyte count is pending. Fever appears so far resolved. Tachycardia resolved. Lactic acid 1.5. Blood culture collected. As above. Status: Acute Qualifiers: Acute respiratory failure type: with hypoxia Sepsis acute organ dysfunction status: with acute organ dysfunction Sepsis type: sepsis due to unspecified organism Severe sepsis acute organ dysfunction type: acute respiratory failure Severe sepsis shock status: without septic shock Qualified Code(s): A41.9 - Sepsis, unspecified organism; R65.20 - Severe sepsis without septic shock; J96.01 - Acute respiratory failure with hypoxia (4) Transaminitis: Most likely secondary to COVID-19 pneumonia. Continue to monitor. Status: Acute (5) Leukopenia: Status: Acute Additional A&P Information Hypoxic respiratory failure because of COVID-19 pneumonia: Transition over to regular high flow nasal cannula today. Wean oxygen suppleme ntation keeping saturation over 90%. Continue with remdesivir to finish a 5-day course. Last dose of remdesivir today. Dexamethasone 6 mg IV daily. DuoNebs every 4 hours, Pulmicort as patient is on high flow. Continue full dose Eliquis 5 mg twice daily consulted Patient's procalcitonin was elevated on admission trending down now. Continue levofloxacin and Augmentin. Last dose of on November 30. Bacterial antigen, Legionella negative. Sputum culture still awaited. CT chest results appreciated. If patient spikes a fever or elevation of white count or becomes hemodynamically unstable we will broaden the coverage. As patient continues to remain afebrile and procalcitonin trending down we will continue levofloxacin for now. Inflammatory markers trending down. Echocardiogram results awaited. We will try to be patient on negative side. Patient over 700 cc negative since admission. Lasix 20 mg IV 1 dose. We will continue to monitor BMP including creatinine and potassium daily. Strict input output charting. Daily weights. GI soft diet Full dose Eliquis as DVT prophylaxis as Full code. Out of bed to chair Patient's blood sugar on BMP elevated. Most likely secondary to high-dose steroids. Start patient on insulin sliding scale at mild dose. Discharge planning: Home versus LTAC. Patient still requiring high amount of oxygen supplementation to maintain saturation over 90%. Depending on how much oxygen patient is requiring in next couple of days will discuss with patient and family regarding possible transfer to LTAC for further rehabitation. Attestations Medical Necessity Statement*: Requires further hospitalization for management of hypoxic respiratory failure secondary COVID-19 pneumonia Time Spent in Patient Care: Greater than 35 minutes (>than 50% of time spent in counselling and/or direct pt care on unit) . Coding Level of Care Code Acute Security Messenger for [facility] Fwd Diagnoses Pneumonia due to COVID-19 virus U07.1; J12.89 Respiratory failure, unspecified with hypoxia J96.01 Chronicity: acute Sepsis A41.9; R65.20; J96.01 Acute respiratory failure type: with hypoxia Sepsis acute organ dysfunction status: with acute organ dysfunction Sepsis type: sepsis due to unspecified organism Severe sepsis acute organ dysfunction type: acute respiratory failure Severe sepsis shock status: without septic shock Transaminitis R74.01 Leukopenia D72.819
[2020-11-27 12:03] LABS: Glucose Point of Care 175 mg/dL (70-110)
[2020-11-27] MEDS: FUROsemide 10 mg/mL SDV 2mL 20 MG IVP (12:34)
[2020-11-27 17:08] LABS: Glucose Point of Care 174 mg/dL (70-110)
[2020-11-27] MEDS: remdesivir 100 MG in sodium chloride 0.9% (100 ml) 100 ML IV (17:16)
[2020-11-27] MEDS: dexamethasone 4 mg/mL INJ 6 MG IVP (17:16)
[2020-11-27] MEDS: pantoprazole DR 40 mg Tablet PO (17:21)
[2020-11-27] MEDS: levoFLOXacin 750 mg Tablet PO (17:21)
[2020-11-27 21:42] LABS: Glucose Point of Care 184 mg/dL (70-110)
[2020-11-28] VITALS (33 sets, daily range): BP systolic 115–156; BP diastolic 61–93; PULSE 83–119; RESP 16–29; TEMP 36.4–36.8; O2SAT 90–95; BMI 27.3
[2020-11-28] MEDS: ipratropium-albuterol 3 mL Neb INHALATION ×6 (04:03→23:59)
[2020-11-28 04:43] LABS: Fibrinogen 342 mg/dL (174-498)
[2020-11-28 04:44] LABS: D Dimer 0.51 ug/mIFEU (0-0.59)
[2020-11-28 05:13] LABS: Creatine Phosphokinase 83 U/L (39-308); Ferritin 923 ng/mL (30-400); Lactate Dehydrogenase 298 U/L (135-225); NT Pro B Type Natriuretic Pept 121 pg/mL (0-125)
--- NOTE | 2020-11-28 06:00 | XR_ITS ---
WS: [id number] Exam: XR chest 1V portable [id number] Date/Time of Exam: 11/28/2020 7:02 AM Reason For Exam: covid Comparison 11/26/2020. Mild ill-defined infiltrates in both lungs show little change since the last exam. The lungs are full y expanded. No pleural effusions. Normal cardiomediastinal structures and bony elements. Monitoring l kelton superimpose the chest. XR/XR chest 1V portable [id number] IMPRESSION: 1. Mild bilateral airspace opacities showing little change.
[2020-11-28 06:39] LABS: C Reactive Protein 4.6 mg/L (0.0-4.9)
[2020-11-28 08:26] LABS: Glucose Point of Care 171 mg/dL (70-110)
[2020-11-28] MEDS: zinc gluconate 50 mg Tablet PO (08:27)
[2020-11-28] MEDS: benzonatate 100 mg Capsule PO ×3 (08:27→21:07)
[2020-11-28] MEDS: amoxicillin-clav 875-125 mg Tablet 1 TAB PO ×2 (08:28→17:31)
[2020-11-28] MEDS: ascorbic acid 500 mg Tablet 1000 MG PO (08:28)
[2020-11-28] MEDS: apixaban 5 mg Tablet PO ×2 (08:28→17:31)
[2020-11-28] MEDS: budesonide 0.5 mg/2 mL Neb INHALATION ×2 (08:33→20:21)
[2020-11-28 11:56] LABS: Glucose Point of Care 175 mg/dL (70-110)
[2020-11-28] MEDS: acetaminophen 325 mg Tablet 650 MG PO ×2 (14:11→22:46)
--- NOTE | 2020-11-28 15:13 | P.PN_ITS ---
Subjective Subjective: Interval history: No acute events overnight. Patient states he is feeling a lot better today. Complaining of occasional episodes of diarrhea. Denies any nausea, vomiting, headache. States appetite is good. On examination down to 8 L high flow nasal cannula saturating 94%. Patient has been sitting up in chair for good amount of time during the day. Continues to semiprone when possible. Working well with Acapella incentive spirometry. Speaking in complete sentences without having any difficulty in breathing. Vitals/I&O/Wt Last Vital Signs Temp 97.5 F L 11/28/20 08:00 Pulse 111 H 11/28/20 13:00 Resp 23 H 11/28/20 13:00 BP 132/77 11/28/20 13:00 Pulse Ox 91 11/28/20 13:00 11/28/20 11/28/20 11/28/20 06:59 14:59 22:59 Intake Total 150 / 1230 480 / 480 Output Total 450 / 775 Balance -300 / 455 480 / 480 Weight last 48 hrs Weight 79.1 kg Weight 81.148 kg Physical Exam Const: COMMON NORMALS: no acute distress, patient oriented x3, healthy appearing and alert GENERAL APPEARANCE: cooperative and comfortable NUTRITIONAL APPEARANCE: overweight ORIENTATION/CONSCIOUSNESS: Yes awake OTHER: With high flow cannula and he is comfortable. Speaking full sentences. HENMT: COMMON NORMALS: oropharynx normal Neck/C-Spine: COMMON NORMALS: no JVD Resp: COMMON NORMALS: normal respiratory effort AUSCULTATION: crackles, rhonchi and diminished lung sounds bilateral in the lower lung brar Cardio: COMMON NORMALS: no JVD, regular rhythm, S1 normal heart sound present, S2 normal heart sound present and No murmurs present (Cardio) RHYTHM: regular rhythm HEART SOUNDS: S1 normal heart sound present and S2 normal heart sound present GI: COMMON NORMALS: Normal to inspection, nondistended, normoactive bowel sounds present, Soft to palpation and non-tender PALPATION: Yes Soft to palpation Extremity: COMMON NORMALS: no joint enlargement and no pedal edema Neuro: COMMON NORMALS: patient oriented x3 and moves all extremities SEN SORIUM/ORIENTATION: Yes alert Skin: COMMON NORMALS: no rashes or lesions noted GENERAL SKIN EXAM: no rashes or lesions noted Data : 11/26/20 04:23 11/26/20 04:23 Micro: Microbiology 11/23/20 11:40 Blood Culture - Final Blood NO GROWTH AFTER 5 DAYS A&P Assessment and plan (1) Pneumonia due to COVID-19 virus: Status: Acute (2) Respiratory failure, unspecified with hypoxia: Status: Acute Qualifiers: Chronicity: acute Qualified Code(s): J96.01 - Acute respiratory failure with hypoxia (3) Sepsis: Possible sepsis with leukopenia, WBC 3.9. Tachycardia on presentation 101, fever one 101.3 on presentation. Sepsis possibly improved. Leukocyte count is pending. Fever appears so far resolved. Tachycardia resolved. Lactic acid 1.5. Blood culture collected. As above. Status: Acute Qualifiers: Acute respiratory failure type: with hypoxia Sepsis acute organ dysfu nction status: with acute organ dysfunction Sepsis type: sepsis due to unspecified organism Severe sepsis acute organ dysfunction type: acute respiratory failure Severe sepsis shock status: without septic shock Qualified Code(s): A41.9 - Sepsis, unspecified organism; R65.20 - Severe sepsis without septic shock; J96.01 - Acute respiratory failure with hypoxia (4) Transaminitis: Most likely secondary to COVID-19 pneumonia. Continue to monitor. Status: Acute (5) Leukopenia: Resolved. Status: Acute Additional A&P Information Hypoxic respiratory failure because of COVID-19 pneumonia: Transition over to regular high flow nasal cannula today. Wean oxygen supplementation keeping saturation over 90%. We will try to transition over to regular nasal cannula today. Last dose of remdesivir on November 27. Dexamethasone 6 mg IV daily. DuoNebs every 4 hours, Pulmicort as patient is on high flow. Continue full dose Eliquis 5 mg twice daily. Patient's procalcitonin was elevated on admission trending down now. Continue levofloxacin and Augmentin. Last dose of on November 30. Bacterial antigen, Legionella negative. Sputum culture still awaited. Patient having frequent episodes of diarrhea. We will start stool studies to rule out C. difficile as patient has been on Augmentin and levofloxacin for last [address] chest results appreciated. If patient spikes a fever or elevation of white count or becomes hemodynamically unstable we will broaden the coverage. As patient continues to remain afebrile and procalcitonin trending down we will continue levofloxacin for now. Inflammatory markers trending down. Echocardiogram results appreciated. Patient euvolemic. Strict input output charting. Daily weights. GI soft diet Full dose Eliquis as DVT prophylaxis as Full code. Out of bed to chair Patient's blood sugar on BMP elevated. Most likely secondary to high-dose steroids. Start patient on insulin sliding scale at mild dose. Discharge planning: Home with oxygen versus SNF. Will have physical therapy evaluate patient today for further recommendations. If able to come down on oxygen requirement to nasal cannula can plan to discharge home with oxygen as well. Patient's care discussed in detail with both patient and his brother Toby on phone. They verbalized understanding. Attestations Medical Necessity Statement*: Requires further hospitalization for management of acute hypoxic respiratory failure due to COVID-19 pneumonia Time Spent in Patient Care: Greater than 35 minutes (>than 50% of time spent in counselling and/or direct pt care on unit) . Coding Level of Care Code Acute Telecommunications Analyst for [facility] Fwd Diagnoses Pneumonia due to COVID-19 virus U07.1; J12.89 Respiratory failure, unspecified with hypoxia J96.01 Chronicity: acute Sepsis A41.9; R65.20; J96.01 Acute respiratory failure type: with hypoxia Sepsis acute organ dysfunction status: with acute organ dysfunction Sepsis type: sepsis due to unspecified organism Severe sepsis acute organ dysfunction type: acute respiratory failure Severe sepsis shock status: without septic shock Transaminitis R74.01 Leukopenia D72.819
[2020-11-28] MEDS: dexamethasone 4 mg/mL INJ 6 MG IVP (17:30)
[2020-11-28] MEDS: pantoprazole DR 40 mg Tablet PO (17:31)
[2020-11-28] MEDS: levoFLOXacin 750 mg Tablet PO (17:31)
[2020-11-28 20:43] LABS: Glucose Point of Care 220 mg/dL (70-110)
[2020-11-29] VITALS (32 sets, daily range): BP systolic 109–155; BP diastolic 48–100; PULSE 85–114; RESP 16–37; TEMP 36.3–36.7; O2SAT 84–95
[2020-11-29] MEDS: ipratropium-albuterol 3 mL Neb INHALATION ×2 (04:30→08:00)
[2020-11-29 05:30] LABS: Fibrinogen 301 mg/dL (174-498)
[2020-11-29 05:32] LABS: D Dimer 0.36 ug/mIFEU (0-0.59)
[2020-11-29 06:10] LABS: Basophils % 0.1 %; Hemoglobin 13.7 g/dL (11.7-16.6); Lymphocytes # 0.4 10^3/uL (0.8-4.8); Lymphocytes % 4.9 %; Mean Corpuscular HGB Conc 34.3 g/dL (30.0-36.0); Mean Corpuscular Hemoglobin 29.3 pg (28.0-34.0); Mean Corpuscular Volume 85.7 fL (80-94); Mean Platelet Volume 9.7 fL (7.4-10.4); Monocytes # 0.3 10^3/uL (0.2-0.9); Monocytes % 4.1 %; Neutrophils # 6.95 10^3/uL (1.8-7.7); Neutrophils % 89.1 %; Nucleated Red Blood Cells % 0 %; Platelet Count 466 10^3/cmm (130-400); Red Blood Count 4.67 10^6/uL (4.1-5.3); Red Cell Distribution Width 12.6 % (12.1-15.1); White Blood Count 7.8 10^3/uL (4.0-10.0)
[2020-11-29 07:02] LABS: Glucose Point of Care 209 mg/dL (70-110)
[2020-11-29] MEDS: budesonide 0.5 mg/2 mL Neb INHALATION (08:00)
[2020-11-29] MEDS: zinc gluconate 50 mg Tablet PO (08:08)
[2020-11-29] MEDS: ergocalciferol (vitamin D2) 50,000 Unit Capsule 50000 UNIT PO (08:09)
[2020-11-29] MEDS: apixaban 5 mg Tablet PO ×2 (08:10→17:21)
[2020-11-29] MEDS: amoxicillin-clav 875-125 mg Tablet 1 TAB PO ×2 (08:10→17:21)
[2020-11-29] MEDS: ascorbic acid 500 mg Tablet 1000 MG PO (08:10)
[2020-11-29] MEDS: benzonatate 100 mg Capsule PO ×3 (08:36→21:34)
--- NOTE | 2020-11-29 10:26 | PM.PN ---
Subjective Subjective: Interval history: No complaints overnight. Patient feeling a lot better. Oxygenation is better. Oxygen supplementation down to 6 L to maintain saturation over 92%. Denies any nausea vomiting, headache. Vitals/I&O/Wt Last Vital Signs Temp 97.6 F 11/29/20 04:00 Pulse 108 H 11/29/20 08:09 Resp 20 H 11/29/20 08:03 BP 151/94 11/29/20 04:00 Pulse Ox 92 11/29/20 08:03 11/28/20 11/29/20 11/29/20 22:59 06:59 14:59 Intake Total 480 / 960 0 / 960 Output Total 1190 / 1190 Balance -710 / -230 0 / -230 Weight last 48 hrs Weight 81.675 kg Weight 79.1 kg Physical Exam Const: COMMON NORMALS: no acute distress, patient oriented x3, healthy appearing and alert GENERAL APPEARANCE: cooperative and comfortable NUTRITIONAL APPEARANCE: overweight ORIENTATION/CONSCIOUSNESS: Yes awake OTHER: With high flow cannula and he is comfortable. Speaking full sentences. HENMT: COMMON NORMALS: oropharynx normal Neck/C-Spine: COMMON NORMALS: no JVD Resp: COMMON NORMALS: normal respiratory effort AUSCULTATION: crackles, rhonchi and diminished lung sounds bilateral in the lower lung brar Cardio: COMMON NORMALS: no JVD, regular rhythm, S1 normal heart sound present, S2 normal heart sound present and No murmurs present (Cardio) RHYTHM: regular rhythm HEART SOUNDS: S1 normal heart sound present and S2 normal heart sound present GI: COMMON NORMALS: Normal to inspection, nondistended, normoactive bowel sounds present, Soft to palpation and non-tender PALPATION: Yes Soft to palpation Extremity: COMMON NORMALS: no joint enlargement and no pedal edema Neuro: COMMON NORMALS: patient oriented x3 and moves all extremities SENSORIUM/ORIENTATION: Yes alert Skin: COMMON NORMALS: no rashes or lesions noted GENERAL SKIN EXAM: no rashes or lesions noted Data : 11/29/20 04:11 11/26/20 04:23 Micro: Microbiology 11/29/20 04:54 Stool Lactoferrin - Final Stool Occult Blood (FIT) - Final 11/23/20 11:40 Blood Culture - Final Blood NO GROWTH AFTER 5 DAYS A&P Assessment and plan (1) Pneumonia due to COVID-19 virus: Status: Acute (2) Respiratory failure, unspecified with hypoxia: Status: Acute Qualifiers: Chronicity: acute Qualified Code(s): J96.01 - Acute respiratory failure with hypoxia (3) Sepsis: Resolved. Status: Acute Qualifiers: Acute respiratory failure type: with hypoxia Sepsis acute organ dysfunction status: with acute organ dysfunction Sepsis type: sepsis due to unspecified organism Severe sepsis acute organ dysfunction type: acute respiratory failure Severe sepsis shock status: without septic shock Qualified Code(s): A41.9 - Sepsis, unspecified organism; R65.20 - Severe sepsis without septic shock; J96.01 - Acute respiratory failure with hypoxia (4) Transaminitis: Most likely secondary to COVID-19 pneumonia. Continue to monitor. Status: Acute (5) Leukopenia: Resolved. Status: Acute Additional A&P Information Hypoxic respiratory failure because of COVID-19 pneumonia: Transitioned over to nasal cannula high flow. Will wean him down to regular nasal cannula to maintain saturation 90%. Patient might require oxygen pendent on discharge on ambulation. Will need home O2 evaluation prior to discharge. Last dose of remdesivir on November 27. Dexamethasone 6 mg IV daily. Will require oral steroids for over 10 days post discharge. DuoNebs every 4 hours, Pulmicort as patient is on high flow. Continue full dose Eliquis 5 mg twice daily. Will need anticoagulation for at least 14 days post discharge. Patient's procalcitonin was elevated on admission trending down now. Continue levofloxacin and Augmentin. Last dose of on November 30. Bacterial antigen, Legionella negative. Sputum culture still awaited. Patient having frequent episodes of diarrhea. Stool study results awaited. CT chest results appreciated. If patient spikes a fever or elevation of white count or becomes hemodynamically unstable we will broaden the coverage. As patient continues to remain afebrile and procalcitonin trending down we will continue levofloxacin for now. Inflammatory markers trending down. Echocardiogram results appreciated. Patient euvolemic. Strict input output charting. Daily weights. GI soft diet Full dose Eliquis as DVT prophylaxis as Full code. Out of bed to chair Patient's blood sugar on BMP elevated. Most likely secondary to high-dose steroids. Continue with insulin sliding scale at mild dose. Required 8 units of insulin over 24 hours. Discharge planning: Home with oxygen versus SNF. Will have physical therapy evaluate patient today for further recommendations. If able to come down on oxygen requirement to nasal cannula can plan to discharge home with oxygen as well. Patient's care discussed in detail with both patient and his brother Toby on phone. They verbalized understanding. Attestations Medical Necessity Statement*: Requires further hospitalization for management of hypoxic respiratory failure because of COVID-19 pneumonia. Time Spent in Patient Care: Greater than 35 minutes (>than 50% of time spent in counselling and/or direct pt care on unit). Coding Level of Care Code Acute Quality Manager for [facility] Fwd Exam Comprehensive Diagnoses Pneumonia due to COVID-19 virus U07.1; J12.89 Respiratory failure, unspecified with hypoxia J96.01 Chronicity: acute Sepsis A41.9; R65.20; J96.01 Acute respiratory failure type: with hypoxia Sepsis acute organ dysfunction status: with acute organ dysfunction Sepsis type: sepsis due to unspecified organism Severe sepsis acute organ dysfunction type: acute respiratory failure Severe sepsis shock status: without septic shock Transaminitis R74.01 Leukopenia D72.819
[2020-11-29 16:48] LABS: Alanine Aminotransferase 25 U/L (0-41); Alkaline Phosphatase 62 IU/L (40-130); Anion Gap 16.9 (5-19); Aspartate Amino Transferase 15 U/L (0-40); Blood Urea Nitrogen 19 mg/dL (8-23); C Reactive Protein 2.3 mg/L (0.0-4.9); Calcium 8.2 mg/dL (8.5-10.5); Carbon Dioxide 20 mmol/L (22-29); Chloride 104 mmol/L (98-107); Creatine Phosphokinase 73 U/L (39-308); Globulin 2.5 g/dL (1.3-4.6); Glomerular Filtration Rate 136.1 mL/min (90-130); Glucose 166 mg/dL (65-115); NT Pro B Type Natriuretic Pept 71 pg/mL (0-125); Osmolality Calculated 290 mOsm/kg (285-295); Potassium 3.9 mmol/L (3.5-5.1); Sodium 137 mmol/L (136-145); Total Bilirubin 0.4 mg/dL (0.15-1.2); Total Protein 5.5 g/dL (6.6-8.7)
[2020-11-29] MEDS: levoFLOXacin 750 mg Tablet PO (17:21)
[2020-11-29] MEDS: dexamethasone 4 mg/mL INJ 6 MG IVP (17:21)
[2020-11-29] MEDS: pantoprazole DR 40 mg Tablet PO (17:21)
[2020-11-29 17:25] LABS: Lactate Dehydrogenase 259 U/L (135-225)
[2020-11-29 19:41] LABS: Glucose Point of Care 183 mg/dL (70-110)
[2020-11-29 22:49] LABS: Glucose Point of Care 171 mg/dL (70-110)
[2020-11-29 22:49] LABS: Glucose Point of Care 175 mg/dL (70-110)
[2020-11-29 22:49] LABS: Glucose Point of Care 141 mg/dL (70-110)
[2020-11-30] VITALS (13 sets, daily range): BP systolic 99–172; BP diastolic 66–95; PULSE 79–94; RESP 17–25; TEMP 36.8–37.2; O2SAT 86–96; BMI 28.2
--- NOTE | 2020-11-30 06:00 | XRR_ITS ---
PROCEDURE INFORMATION: Exam: XR Chest, 1 View Exam date and time: 11/30/2020 12:00 AM Age: 65 years old Clinical indication: Shortness of breath; Additional info: Covid TECHNIQUE: Imaging protocol: XR of the chest Views: 1 view. COMPARISON: CR XR chest 1V portable [id number] 11/28/2020 7:21 AM FINDINGS: Lungs: Interstitial prominence and trace airspace disease, in the setting of reported COVID-19 pneumonitis. Pleural spaces: No pleural effusion. Heart/Mediastinum: No cardiomegaly. Vasculature: Ectasia of the thoracic aorta. Bones/joints: Degenerative change. XR/XR chest 1V portable [id number] IMPRESSION: Interstitial prominence and trace airspace disease, in the setting of reported COVID-19 pneumonitis.
[2020-11-30 06:56] LABS: Fibrinogen 325 mg/dL (174-498)
[2020-11-30 06:59] LABS: D Dimer 0.38 ug/mIFEU (0-0.59)
[2020-11-30 07:03] LABS: Alanine Aminotransferase 27 U/L (0-41); Alkaline Phosphatase 69 IU/L (40-130); Anion Gap 15.4 (5-19); Aspartate Amino Transferase 17 U/L (0-40); Blood Urea Nitrogen 20 mg/dL (8-23); Calcium 8.7 mg/dL (8.5-10.5); Carbon Dioxide 23 mmol/L (22-29); Chloride 99 mmol/L (98-107); Globulin 2.7 g/dL (1.3-4.6); Glomerular Filtration Rate 136.1 mL/min (90-130); Glucose 187 mg/dL (65-115); Osmolality Calculated 284 mOsm/kg (285-295); Potassium 4.4 mmol/L (3.5-5.1); Sodium 133 mmol/L (136-145); Total Bilirubin 0.4 mg/dL (0.15-1.2); Total Protein 5.7 g/dL (6.6-8.7)
[2020-11-30 07:44] LABS: Creatine Phosphokinase 74 U/L (39-308); Lactate Dehydrogenase 224 U/L (135-225); NT Pro B Type Natriuretic Pept 64 pg/mL (0-125)
[2020-11-30 07:53] LABS: Glucose Point of Care 231 mg/dL (70-110)
[2020-11-30 08:13] LABS: Ferritin 816 ng/mL (30-400)
[2020-11-30] MEDS: ascorbic acid 500 mg Tablet 1000 MG PO (09:18)
[2020-11-30] MEDS: apixaban 5 mg Tablet PO (09:19)
[2020-11-30] MEDS: amoxicillin-clav 875-125 mg Tablet 1 TAB PO (09:19)
[2020-11-30] MEDS: zinc gluconate 50 mg Tablet PO (09:19)
[2020-11-30] MEDS: benzonatate 100 mg Capsule PO (09:19)
[2020-11-30 11:54] LABS: Glucose Point of Care 206 mg/dL (70-110)
[2020-11-30 11:55] LABS: Glucose Point of Care 204 mg/dL (70-110)
--- NOTE | 2020-11-30 11:59 | P.DS_ITS ---
Discharge Providers Date of Admission: 11/23/20 14:05 Date of Discharge: November 30, 2020 Attending Provider at Admission: Obey Carroll Attending Provider at Discharge: Klaus Leach MD Diagnoses at Discharge Discharge Diagnosis (1) Pneumonia due to COVID-19 virus: Status: Acute (2) Respiratory failure, unspecified with hypoxia: Status: Acute Qualifiers: Chronicity: acute Qualified Code(s): J96.01 - Acute respiratory failure with hypoxia (3) Sepsis: Status: Acute Qualifiers: Acute respiratory failure type: with hypoxia Sepsis acute organ dysfunction status: with acute organ dysfunction Sepsis type: sepsis due to unspecified organism Severe sepsis acute organ dysfunction type: acute respiratory failure Severe sepsis shock status: without septic shock Qualified Code(s): A41.9 - Sepsis, unspecified organism; R65.20 - Severe sepsis without septic shock; J96.01 - Acute respiratory failure with hypoxia (4) Transaminitis: Status: Acute (5) Leukopenia: Status: Acute Reason for Visit Reason for Visit: Weakness/SOB/ covid [facility] Hospital Course Hospital Course 65-year-old gentleman without much past medical history, not normally on any medications, was diagnosed with COVID-19 on 11/11, with symptoms starting sometime before that, was treated with Augmentin for possible strep throat, and appears also may have received a dose of ivermectin, presented to ER due to progressive, body aches, shortness of breath, fevers. Was previously assessed and did not qualify for monoclonal antibody infusion. Unfortunately continued to worsen. Noted hypoxic in ER, due to which was started on nonrebreather oxygen. ABG 7.51/34.5/71.1/27.8. Subsequent transition to high flow cannula. Saturations in the low to mid 90s on 80% FiO2, 30 L. D-dimer is 0.63. CRP 75. He has some pleuritic chest discomfort, but no constant pain. Troponin is not elevated, and without positive delta 2 hours. EKG with RBBB, occasional PAC. He is febrile, 1-1.3. Procalcitonin is 6.09. Chest x-ray shows mild haziness of pulmonary interstitium suggesting mild or early interstitial pneumonia. Rapid influenza is negative. Rapid COVID-19 is negative. Due to concern for superimposed bacterial pneumonia he received ceftriaxone dose in ER, 1 g. To me he reports he is currently much more comfortable with a high flow cannula. Reports that he was having quite a bit of diarrhea previously, but this is resolved. Denies any headache. Denies any nausea or vomiting. He is coughing, but cough is nonproductive. He names his brother Toby as surrogate decision maker on his behalf in case he could not make his own decision. Patient was admitted to the hospital in the viral ICU and started on treatment for COVID-19 pneumonia with antiviral treatment from remdesivir, IV steroids in addition treatment. She was also started on Augmentin levofloxacin for antibiotic coverage. He responded well to the treatment and has been requiring less oxygen supplementation gradually. On admission he was requiring heated hi gh flow up to 90% FiO2 but now is requiring up to 4 L with nasal cannula for more than 24 hours both at rest and exertion. He is been discharged hemodynamically stable condition after home O2 evaluation has been done. Medications have been discussed with him in detail. He is to follow-up with his primary care provider within next 1 to 3 days. He does not have a primary care provider right now but he wants to follow-up with the primary care provider who is same for his [id number]. He has been told if he is notable to make an appointment by Wednesday to call the care coordination team and we can help set up an appointment for him. Physical Exam Const: COMMON NORMALS: no acute distress, patient oriented x3, healthy appearing and alert GENERAL APPEARANCE: cooperative and comfortable NUTRITIONAL APPEARANCE: overweight ORIENTATION/CONSCIOUSNESS: Yes awake OTHER: With high flow cannula and he is comfortable. Speaking full sentences. HENMT: COMMON NORMALS: oropharynx normal Neck/C-Spine: COMMON NORMALS: no JVD Resp: COMMON NORMALS: normal respiratory effort AUSCULTATION: crackles, rhonchi and diminished lung sounds bilateral in the lower lung brar Cardio: COMMON NORMALS: no JVD, regular rhythm, S1 normal heart sound present, S2 normal heart sound present and No murmurs present (Cardio) RHYTHM: regular rhythm HEART SOUNDS: S1 normal heart sound present and S2 normal heart sound present GI: COMMON NORMALS: Normal to inspection, nondistended, normoactive bowel sounds present, Soft to palpation and non-tender PALPATION: Yes Soft to palpation Extremity: COMMON NORMALS: no joint enlargement and no pedal edema Neuro: COMMON NORMALS: patient oriented x3 and moves all extremities SENSORIUM/ORIENTATION: Yes alert Skin: COMMON NORMALS: no rashes or lesions noted GENERAL SKIN EXAM: no rashes or lesions noted Discharge Data Data Completed and Pending: Completed Studies During Hospitalization Category Date Time Status CT chest wo con 7 1250 Urgent Cat Scan 11/25/20 14:48 Completed XR chest 1V abdullahi ble [id number] Q48H Exams 11/26/20 06:00 Completed XR chest 1V abdullahi ble [id number] Q48H Exams 11/28/20 06:00 Completed XR chest 1V abdullahi ble [id number] Q48H Exams 11/30/20 06:00 Completed XR chest 1V abdullahi ble [id number] Stat Exams 11/23/20 10:28 Completed Pending at discharge Category Date Time Status C Reactive Protei n AM LABS Lab 12/01/20 04:00 Ordered Creatine Phosphok inase AM LABS Lab 12/01/20 04:00 Ordered D Dimer AM LABS Lab 12/01/20 04:00 Ordered Ferritin AM LABS Lab 12/01/20 04:00 Ordered Fibrinogen AM LAB S Lab 12/01/20 04:00 Ordered Lactate Dehydroge nase AM LABS Lab 12/01/20 04:00 Ordered NT Pro B Type Ayala riuretic Pept AM L ABS Lab 12/01/20 04:00 Ordered Sputum Culture an d Gram Stain Stat Lab 11/29/20 04:20 Results CV echo complete* [id number] Routine Ultrasound 11/26/20 05:00 Taken Labs from last 24 hours 11/30/20 11/30/20 11/30/20 11:40 07:48 06:53 Fibrinogen D-Dimer Sodium Potassium Chloride Carbon Dioxide Anion Gap BUN Creatinine GFR Calculation Glucose POC Glucose 204 H 231 H 206 H Calculated Osmolal ity Calcium Ferritin Total Bilirubin AST ALT Alkaline Phosphata se Lactate Dehydrogen ase Creatine Kinase C-Reactive Protein NT-Pro-B Natriuret Pep Total Protein Albumin Globulin 11/30/20 11/30/20 11/30/20 05:00 05:00 05:00 Fibrinogen 325 D-Dimer 0.38 Sodium 133 L Potassium 4.4 Chloride 99 Carbon Dioxide 23 Anion Gap 15.4 BUN 20 Creatinine 0.6 L GFR Calculation 136.1 H Glucose 187 H POC Glucose Calculated Osmolal ity 284 L Calcium 8.7 Ferritin 816 H Total Bilirubin 0.4 AST 17 ALT 27 Alkaline Phosphata se 69 Lactate Dehydrogen ase 224 Creatine Kinase 74 C-Reactive Protein 2.0 NT-Pro-B Natriuret Pep 64 Total Protein 5.7 L Albumin 3.0 L Globulin 2.7 11/29/20 11/29/20 11/29/20 21:40 19:36 16:49 Fibrinogen D-Dimer Sodium Potassium Chloride Carbon Dioxide Anion Gap BUN Creatinine GFR Calculation Glucose POC Glucose 171 H 183 H 141 H Calculated Osmolal ity Calcium Ferritin Total Bilirubin AST ALT Alkaline Phosphata se Lactate Dehydrogen ase Creatine Kinase C-Reactive Protein NT-Pro-B Natriuret Pep Total Protein Albumin Globulin 11/29/20 11/29/20 15:40 11:53 Fibrinogen D-Dimer Sodium 137 Potassium 3.9 Chloride 104 Carbon Dioxide 20 L Anion Gap 16.9 BUN 19 Creatinine 0.6 L GFR Calculation 136.1 H Glucose 166 H POC Glucose 175 H Calculated Osmolal ity 290 Calcium 8.2 L Ferritin Total Bilirubin 0.4 AST 15 ALT 25 Alkaline Phosphata se 62 Lactate Dehydrogen ase 259 H Creatine Kinase 73 C-Reactive Protein 2.3 NT-Pro-B Natriuret Pep 71 Total Protein 5.5 L Albumin 3.0 L Globulin 2.5 Vitals: Last Vital Signs Temp 98.6 F 11/30/20 08:00 Pulse 81 11/30/20 08:47 Resp 19 H 11/30/20 08:47 BP 150/75 11/30/20 08:47 Pulse Ox 92 11/30/20 08:47 Discharge Plan Discharge Patient Disposition: Home Condition: Stable Prescriptions: New Advair Diskus 250-50 mcg/dose Blister With Device 1 puff inhalation BID.RESPIRATORY 14 Days Qty: 30 RF: 0 Vitamin C 500 mg Tablet 1,000 mg PO DAILY 14 Days Qty: 56 RF: 0 benzonatate 100 mg Capsule 100 mg PO TID PRN (Reason: cough) 3 Days Qty: 9 RF: 0 pantoprazole 40 mg Tablet,Delayed Release (Dr/Ec) 40 mg PO Q24H 14 Days Qty: 14 RF: 0 zinc gluconate 50 mg Tablet 50 mg PO DAILY 14 Days Qty: 14 RF: 0 levofloxacin 750 mg Tablet 750 mg PO Q24H 1 Days Qty: 1 RF: 0 amoxicillin-pot clavulanate 875-125 mg Tablet 1 tab PO BID 1 Days Qty: 2 RF: 0 Spiriva with HandiHaler 18 mcg Capsule, W/Inhalation Device 18 mcg inhalation DAILY.RESPIRATORY 14 Days Qty: 14 RF: 0 Eliquis 5 mg Tablet 5 mg PO BID 14 Days Qty: 28 RF: 0 prednisone 10 mg tablet See Taper mg PO DAILY Qty: 30 RF: 0 Continued Tylenol Extra Strength 500 mg Tablet 1,000 mg PO PRN RF: 0 ergocalciferol (vitamin D2) 1,250 mcg (50,000 unit) capsule See Rx Instructions .ROUTE .COMPLEX RF: 0 Discontinued ivermectin 3 mg tablet 12 mg PO ONCE RF: 0 ascorbic acid (vitamin C) 1,000 mg tablet 1,000 mg PO DAILY RF: 0 amoxicillin-pot clavulanate 875-125 mg tablet 1 tab PO Q12H RF: 0 zinc amino acid chelate 50 mg tablet 50 mg PO DAILY RF: 0 Discharge Orders: Discharge Order (Routine); Ordered 11/30/20 Ordered By: Klaus Leach Discharge Diet: Usual diet Discharge Activity: Resume usual activity Activity Restrictions/Additional Instructions: Please follow-up with your primary care provider within next 1 to 3 days. You do not have a primary care provider right now. I have discussed you will follow up with the primary care provider of your [id number]. If not able to make an appointment by Wednesday please call the care coordination we can make an appointment for you. Medications have been sent to your pharmacy. You will be on steroid taper as described. You will be on Advair, Spiriva which are the inhalers for next 2 weeks. You will be on a blood thinner called Eliquis which is supposed to take twice a day for next 2 weeks. You will be on 2 antibiotics of Augmentin and levofloxacin for 1 more day. Continue taking vitamin C and zinc for next 2 weeks. Please continue to maintain social distance and whenever you are in public or in company with somebody else please continue to wear a mask. If you have any fever, more difficulty in breathing than usual come to the ER. Come to ER if you have any bleeding. Discharge Attestations Time Spent in Discharge Care*: greater than 30 min Specific Discharge Activities: educating patient, educating and/or supporting family/caregiver, discussing with special education case manager/social workers/dc planners, documenting/other paperwork and evaluating patient/reviewing data Status at Discharge: Cognitive status at discharge: cognitively intact , Behavioral status at discharge: cooperative , Functional status at discharge: independent ambulation Overall status at discharge: patient is progressing back to baseline Quality Metrics Clinical Quality Measures During this hospital stay, did patient experience: None Coding Level of Care Code Acute Diazo Technician for [facility] Fwd Diagnoses Pneumonia due to COVID-19 virus U07.1; J12.89 Respiratory failure, unspecified with hypoxia J96.01 Chronicity: acute Sepsis A41.9; R65.20; J96.01 Acute respiratory failure type: with hypoxia Sepsis acute organ dysfunction status: with acute organ dysfunction Sepsis type: sepsis due to unspecified organism Severe sepsis acute organ dysfunction type: acute respiratory failure Severe sepsis shock status: without septic shock Transaminitis R74.01 Leukopenia D72.819
--- NOTE | 2020-11-30 15:05 | PC.NURSE ---
Discharge instructions provided and discussed. Care noted about Covid-19 discharge charge care, masking and social distancing provided. Pt declined discussion. Pt given instructions to call for follow up appt Wednesday
--- NOTE | 2020-11-30 15:52 | PC.NURSE ---
Pt to ER entrance via W/C and oxygen. All belongings with pt.
== END 2020-11-30 15:32 | disposition home or self-care (01) | DRG 871 ==
LOC: ER 13:18 → ER IP 17:17 → MS 2A 19:48
PROVIDERS: Admitting Provider Internal Medicine; Emergency Provider Physician Assistant; Visit Provider Student in an Organized Health Care Education/Training Program
DX: A41.9 Sepsis, unspecified organism (principal); U07.1 COVID-19; J96.01 Acute respiratory failure with hypoxia; J12.82 Pneumonia due to coronavirus disease 2019; R65.20 Severe sepsis without septic shock; Z87.891 Personal history of nicotine dependence
CPT/HCPCS: 12345; 36415; 36416; 36600; 71045; 71250; 80051; 80053; 82274; 82330; 82550; 82728; 82805; 82962; 83036; 83540; 83550; 83605; 83615; 83630; 83880; 84145; 84443; 84484; 85025; 85378; 85384; 85610; 85730; 86140; 86403; 87040; 87070; 87205; 87426; 87449; 87493; 87506; 87641; 87804; 93005; 93306; 94640; 96372; 97161; 99283; J0131; J0696; J1100; J1650; J1815; J1940; J7626

== ENCOUNTER → 2022-05-22 12:46 | Outpatient (BNVA) | payer MEDICARE, MEDICAID, SELFPAY | PROVIDERS: PCP Family Medicine; Visit Provider Emergency Medicine | DX: Z20.822 Contact with and (suspected) exposure to COVID-19 (principal) | CPT/HCPCS: 87635 ==

== ENCOUNTER → 2022-05-27 14:45 | Outpatient (BNVA) | payer MEDICARE, MEDICAID, SELFPAY | PROVIDERS: PCP Family Medicine; Visit Provider Emergency Medicine | DX: Z87.01 Personal history of pneumonia (recurrent) (principal); Z87.09 Personal history of other diseases of the respiratory system; R68.89 Other general symptoms and signs; Z20.822 Contact with and (suspected) exposure to COVID-19 | CPT/HCPCS: 87426 ==

== ENCOUNTER 2022-11-03 12:18 | Emergency (ER) | payer MEDICARE, MEDICAID, SELFPAY ==
[2022-11-03 12:45] VITALS: BP 205/92; PULSE 63; RESP 16; TEMP 36.7; O2SAT 99
[2022-11-03 14:37] VITALS: BP 177/96; PULSE 69; RESP 16; O2SAT 98
--- NOTE | 2022-11-03 16:09 | XRR_ITS ---
PROCEDURE INFORMATION: Exam: XR Chest Exam date and time: 11/03/2022 4:31 PM Age: 67 years old Clinical indication: Chest wall pain; Additional info: L lower chest/chest wall pain TECHNIQUE: Imaging protocol: Radiologic exam of the chest. Views: 1 view. COMPARISON: CR XR chest 1V portable [id number] 11/30/2020 7:43 AM FINDINGS: Lungs: Unremarkable. No consolidation. Pleural spaces: Unremarkable. No pleural effusion. No pneumothorax. Heart/Mediastinum: Unremarkable. No cardiomegaly. Bones/joints: Unremarkable. XR/XR chest 1V portable [id number] IMPRESSION: No acute findings.
--- NOTE | 2022-11-03 16:10 | ED_ITS ---
HPI - General Adult General: Chief complaint: General Medical Stated complaint: Left flank pain Time Seen by Provider: 11/03/22 16:01 Source: patient Mode of arrival: ambulatory Limitations: no limitations History of Present Illness: Patient is a 67-year-old male who presents to ED today with a complaint of left lateral chest wall pain over the past 2 to 3 weeks. He apparently was evaluated at an outside facility and referred to the ED for further evaluation. Review of that note states patient's discomfort was more left upper quadrant and timeline was reported at one week. Patient is telling me he does not have any abdominal discomfort and symptoms have been present at least 2 to 3 weeks . He does not complain of any cough, shortness of breath, difficulty breathing. Patient currently denies nausea, vomiting, diarrhea however states he has had diarrhea intermittently previously. He has not been running fevers. No injury or trauma to his chest. States pain is worse with movement and improved with lying down. Onset (ago): week(s) Location: chest Radiation: non-radiation Severity: moderate Pain Consistency: constant Relieving factors: rest (lying down) Exacerbating factors: movement Associated symptoms: Reports no associated symptoms and chest pain (L lower lateral chest wall); Deny dyspnea, headache(s), malaise, nausea, rash, palpitations, syncope or vomiting Treatments prior to arrival: none Review of Systems Const: Denies: fever(s), chills, body aches, fatigue or malaise Card: Reports: chest pain (L lower lateral chest wall); Denies: palpitations, irregular heart rhythm, edema, swelling of feet/ankles, lightheadedness, syncope, pre-syncope, dyspnea on exertion, orthopnea, leg pain with exertion or acrocyanosis Resp: Denies: dyspnea, productive cough, non-productive cough, wheezing, hemoptysis or chest congestion GI: Denies: abdominal pain, nausea, vomiting or diarrhea : Denies: flank pain, dysuria or hematuria Musc: Denies: neck pain, back pain, extremity pain or joint pain Skin/Breast: Denies: rash Neuro: Denies: headache(s), numbness in extremities, weakness in extremities, sensory changes or dizziness [facility] ED PFSH: Medical History History of acute respiratory failure History of pneumonia No significant medical problems Surgical History H/O foot surgery 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 H/O Spinal surgery Family History Other Diabetes Social History Smoking and tobacco status: former smoker Alcohol intake: never Lives independently: Yes Household members: family and other Details: brother Marital status: Current occupational status: retired Physical Exam Const: COMMON NORMALS: no acute distress, patient oriented x3, no limitations and alert GENERAL APPEARANCE: cooperative ORIENTATION/CONSCIOUSNESS: Yes awake, Yes oriented to person, Yes oriented to place and Yes oriented to time HENMT: COMMON NORMALS: normocephalic and atraumatic HEAD & SCALP: normal to inspection, normocephalic and atraumatic Chest: COMMONS NORMALS: normal inspection of the chest CHEST: Yes tenderness Breast/axilla inspection: Yes no chest deformity, asymmetry, normal contours, no nodules, masses, tenderness Chest images (male): 1. TTP Resp: COMMON NORMALS: normal respiratory effort and clear to auscultation bilaterally AUSCULTATION: clear to auscultation bilaterally Cardio: COMMON NORMALS: regular rate and regular rhythm RATE: regular rate RHYTHM: regular rhythm GI: COMMON NORMALS: Normal to inspection, nondistended, normoactive bowel sounds present, Soft to palpation, non-tender, No hepatosplenomegaly present and no masses INSPECTION: Yes normal to inspection AUSCULTATION: Yes normoactive bowel sounds PALPATION: Yes Soft to palpation and Yes No hepatosplenomegaly present OTHER: patient has no abdominal tenderness with light and deep palpation of abdomen GI image (male): 1. TTP : COMMON NORMALS: Yes no CVA tenderness BLADDER/KIDNEY EXAM: Yes no CVA tenderness Back/Pelvis: COMMON NORMALS: no CVA tenderness, thoracic and lumbar spine normal to inspection, no thoracic nor lumbar tenderness and thoraco-lumbar ROM normal Extremity: COMMON NORMALS: normal to inspection GENERAL: Yes normal exam except as noted Neuro: HUMBLE COMA SCALE: document GCS findings Lorane coma scale eye opening: Spontaneous Lorane coma scale verbal response: Orientated Lorane coma scale motor response: Obey commands Humble coma scale total score: 15 COMMON NORMALS: patient oriented x3 SENSORIUM/ORIENTATION: Yes alert, Yes oriented to person, Yes oriented to place and Yes oriented to time Skin: COMMON NORMALS: no rashes or lesions noted GENERAL SKIN EXAM: no rashes or lesions noted TRAUMA: no lacerations or abrasions Course Vital Signs: Vital signs: Vital Signs Temperature 97.7 F 11/03/22 16:41 Pulse Rate 61 11/03/22 16:41 Respiratory Rate 14 11/03/22 16:41 Blood Pressure 177/99 11/03/22 16:41 Pulse Oximetry 98 11/03/22 16:41 Oxygen Delivery Me thod 11/03/22 16:41 MDM - General Adult Medical Decision Making Patient here for pain along his left lateral lower rib cage x 2-3 weeks. Pain appears bony vs musculoskeletal at this time as it is easily reproducible with palpation. He has absolutely no abdominal tenderness. Vital signs are stable apart from hypertension which he states he normally has and is untreated. Lab work is non-concerning. His UA is clear. At this time I recommend he follow-up with his PCP at the end of the week or early next week. Signs and symptoms that should prompt return to ED visit were discussed with patient he verbalized understanding. Lab Data 11/03/22 16:14 11/03/22 16:14 Radiology Impressions Chest X-Ray 11/03/22 16:09 IMPRESSION: No acute findings. Laboratory Results WBC 9.0 10^3/uL (4.0-10.0) 11/03/22 16:14 RBC 5.58 10^6/uL (4.1-5.3) H 11/03/22 16:14 Hgb 16.4 g/dL (11.7-16.6) 11/03/22 16:14 Hct 49.5 % (42.0-52.0) 11/03/22 16:14 MCV 88.7 fl (80-94) 11/03/22 16:14 MCH 29.4 pg (28.0-34.0) 11/03/22 16:14 MCHC 33.1 g/dL (30.0-36.0) 11/03/22 16:14 RDW 13.3 % (12.1-15.1) 11/03/22 16:14 Plt Count 234 10^3/cmm (130-400) 11/03/22 16:14 MPV 10.2 fL (7.4-10.4) 11/03/22 16:14 Neut % (Auto) 55.4 % 11/03/22 16:14 Lymph % (Auto) 31.8 % 11/03/22 16:14 [place] % (Auto) 7.9 % 11/03/22 16:14 Eos % (Auto) 2.9 % 11/03/22 16:14 Baso % (Auto) 1.2 % 11/03/22 16:14 Neut # (Auto) 5.00 10^3/uL (1.8-7.7) 11/03/22 16:14 Lymph # (Auto) 2.9 10^3/uL (0.8-4.8) 11/03/22 16:14 [place] # (Auto) 0.7 10^3/uL (0.2-0.9) 11/03/22 16:14 Eos # (Auto) 0.3 10^3/uL (0.0-0.8) 11/03/22 16:14 Baso # (Auto) 0.1 10^3/uL (0.0-0.1) 11/03/22 16:14 Nucleated RBC % (auto) 0 % 11/03/22 16:14 Nucleated RBCs # 0.0 /100WBC 11/03/22 16:14 Sodium 141 mmol/L (136-145) 11/03/22 16:14 Potassium 4.3 mmol/L (3.5-5.1) 11/03/22 16:14 Chloride 104 mmol/L (98-107) 11/03/22 16:14 Carbon Dioxide 27 mmol/L (22-29) 11/03/22 16:14 Anion Gap 14.3 (5-19) 11/03/22 16:14 BUN 19 mg/dL (8-23) 11/03/22 16:14 Creatinine 0.8 mg/dL (0.7-1.2) 11/03/22 16:14 GFR Calculation 97.0 mL/min (90-130) 11/03/22 16:14 Glucose 89 mg/dL (65-115) 11/03/22 16:14 Calculated Osmolality 294 mOsm/kg (285-295) 11/03/22 16:14 Calcium 9.8 mg/dL (8.5-10.5) 11/03/22 16:14 Total Bilirubin 0.3 mg/dL (0.15-1.2) 11/03/22 16:14 AST 19 U/L (0-40) 11/03/22 16:14 ALT 16 U/L (0-41) 11/03/22 16:14 Alkaline Phosphatase 103 U/L (40-130) 11/03/22 16:14 Total Protein 6.8 g/dL (6.6-8.7) 11/03/22 16:14 Albumin 4.3 g/dL (3.5-5.2) 11/03/22 16:14 Globulin 2.5 g/dL (1.3-4.6) 11/03/22 16:14 Lipase 50 U/L (13-60) 11/03/22 16:14 Urine Color Yellow (Yellow) 11/03/22 16:25 Urine Appearance Clear (CLEAR) 11/03/22 16:25 Urine pH 5 (5-7) 11/03/22 16:25 Ur Specific Pound 1.020 (1.005-1.030) 11/03/22 16:25 Urine Protein Neg (Negative) 11/03/22 16:25 Urine Glucose (UA) Norm (Normal) 11/03/22 16:25 Urine Ketones Negative (Negative) 11/03/22 16:25 Urine Blood Neg (Negative) 11/03/22 16:25 Urine Nitrate Negative (Negative) 11/03/22 16:25 Urine Bilirubin Neg (Negative) 11/03/22 16:25 Urine Urobilinogen Norm mg/dL (Negative) 11/03/22 16:25 Ur Leukocyte Esterase Negative (Negative) 11/03/22 16:25 Discharge Plan Discharge Patient Disposition: Home Clinical Impression: Left-sided chest wall pain Condition: Stable Prescriptions: No Action naproxen 500 mg tablet 500 mg PO BID PRN (Reason: pain) Qty: 60 0RF Paxlovid (EUA) 150 mg x 2- 100 mg tablet See Rx Instructions PO PER PKG DIR Qty: 1 0RF Rx Instructions: PO PER PKG DIR Tylenol Extra Strength 500 mg Tablet 1,000 mg PO PRN Discharge Orders: Discharge ED (Routine); Ordered 11/03/22 Ordered By: Wendy Tran Referrals: Robyn Doe MD [Primary Care Provider] - Coding Level of Care Code ED Rn Camp for Chg Fwd Exam Comprehensive
[2022-11-03 16:21] LABS: Basophils # 0.1 10^3/uL (0.0-0.1); Basophils % 1.2 %; Eosinophils # 0.3 10^3/uL (0.0-0.8); Eosinophils % 2.9 %; Hematocrit 49.5 % (42.0-52.0); Hemoglobin 16.4 g/dL (11.7-16.6); Lymphocytes # 2.9 10^3/uL (0.8-4.8); Lymphocytes % 31.8 %; Mean Corpuscular HGB Conc 33.1 g/dL (30.0-36.0); Mean Corpuscular Hemoglobin 29.4 pg (28.0-34.0); Mean Corpuscular Volume 88.7 fl (80-94); Mean Platelet Volume 10.2 fL (7.4-10.4); Monocytes # 0.7 10^3/uL (0.2-0.9); Monocytes % 7.9 %; Neutrophils % 55.4 %; Nucleated Red Blood Cells % 0 %; Platelet Count 234 10^3/cmm (130-400); Red Blood Count 5.58 10^6/uL (4.1-5.3); Red Cell Distribution Width 13.3 % (12.1-15.1)
[2022-11-03 16:36] LABS: Add Urine Microscopic? NO; Charge for UA Resulting for Rev
[2022-11-03 16:39] VITALS: BP 177/99; PULSE 61; RESP 14; TEMP 36.5; O2SAT 98
[2022-11-03 16:41] VITALS: BP 177/99; PULSE 61; RESP 14; TEMP 36.5; O2SAT 98
[2022-11-03 16:50] LABS: Bilirubin Urine Neg (Negative); Blood Urine Neg (Negative); Glucose Urine UA Norm (Normal); Ketones Urine Negative (Negative); Nitrate Urine Negative (Negative); Protein Urine Neg (Negative); Urine Appearance Clear (CLEAR); Urine Color Yellow (Yellow); pH Urine 5 (5-7)
[2022-11-03 16:51] LABS: Leukocyte Esterase Urine Negative (Negative); Urobilinogen Urine Norm (Negative)
[2022-11-03 16:54] LABS: Alanine Aminotransferase 16 U/L (0-41); Albumin Level 4.3 g/dL (3.5-5.2); Alkaline Phosphatase 103 U/L (40-130); Blood Urea Nitrogen 19 mg/dL (8-23); Calcium 9.8 mg/dL (8.5-10.5); Carbon Dioxide 27 mmol/L (22-29); Chloride 104 mmol/L (98-107); Globulin 2.5 g/dL (1.3-4.6); Glucose 89 mg/dL (65-115); Lipase 50 U/L (13-60); Osmolality Calculated 294 mOsm/kg (285-295); Sodium 141 mmol/L (136-145); Total Bilirubin 0.3 mg/dL (0.15-1.2); Total Protein 6.8 g/dL (6.6-8.7)
[2022-11-03 17:00] LABS: Anion Gap 14.3 (5-19); Aspartate Amino Transferase 19 U/L (0-40); Potassium 4.3 mmol/L (3.5-5.1)
== END 2022-11-03 17:07 | disposition home or self-care (01) ==
PROVIDERS: Emergency Provider Physician Assistant; PCP Family Medicine
DX: R07.89 Other chest pain (principal); Z87.891 Personal history of nicotine dependence
CPT/HCPCS: 36415; 71045; 80053; 81003; 83690; 85025; 99284

== ENCOUNTER → 2023-02-02 13:19 | Outpatient (BNVA) | payer MEDICARE, MEDICAID, SELFPAY | PROVIDERS: PCP Family Medicine; Visit Provider Emergency Medicine | DX: R68.89 Other general symptoms and signs (principal); Z20.822 Contact with and (suspected) exposure to COVID-19 | CPT/HCPCS: 87400; 87426 ==

== ENCOUNTER 2023-07-30 11:36 | Emergency (ER) | payer MEDICARE, MEDICAID, SELFPAY ==
[2023-07-30 11:46] VITALS: BP 156/90; PULSE 76; RESP 17; TEMP 37.1; O2SAT 96; BMI 31.8
[2023-07-30 13:44] VITALS: BP 153/87; PULSE 67; RESP 16; O2SAT 95
--- NOTE | 2023-07-30 13:46 | ED_ITS ---
HPI - Abdominal Pain General: Chief Complaint: Abdominal Pain Stated Complaint: n/d abd pain Time Seen by Provider: 07/30/23 12:59 Source: patient Mode of arrival: ambulatory Limitations: no limitations History of Present Illness: Patient presents to the emergency department for evaluation treatment of abdominal discomfort, vomiting, and diarrhea at the request of his primary care doctor. Patient states that for several weeks now he has had daily diarrhea. He states at first it was very dark-almost black, but then spontaneously returned back to brown color. He reports it is loose and he does notice it worsened with eating. Patient states that today began having vomiting so he went to go see his doctor who sent him here as they were concerned that his abdomen felt rigid. Patient states he has generalized abdominal pain primarily felt around the periumbilical region. Patient states that multiple people in the household have had similar episodes of diarrhea. He states one of them was seen and evaluated yesterday but is not sure what the outcome was. He [place] He has not had any travel recently. He denies fevers, sore throat, nasal congestion, cough, or headache. Review of Systems General: Reports: 10 or more systems reviewed and unremarkable except in HPI and below PFSH ED PFSH: Medical History History of acute respiratory failure History of pneumonia No significant medical problems Surgical History H/O foot surgery 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 H/O Spinal surgery Family History Other Diabetes Social History Smoking and tobacco status: former smoker Alcohol intake: never Substance/Drug Use: never Lives independently: Yes Household members: family and other Details: brother Marital status: Current occupational status: retired Physical Exam Const: COMMON NORMALS: no acute distress, patient oriented x3 and alert HENMT: COMMON NORMALS: normocephalic, atraumatic, hearing grossly normal bilaterally and moist oral mucous membranes HEAD & SCALP: normocephalic and atraumatic Eye: COMMON NORMALS: Equal, round and reactive pupils present, EOMs intact bilaterally and conjunctivae normal CONJUNCTIVA: Yes conjunctivae normal PUPIL: Yes Equal, round and reactive pupils present Neck/C-Spine: COMMON NORMALS: full ROM and no JVD Lymph: LYMPHATIC: no lymphadenopathy noted Resp: COMMON NORMALS: normal respiratory effort, No retractions, No use of accessory muscles and clear to auscultation bilaterally AUSCULTATION: clear to auscultation bilaterally Cardio: COMMON NORMALS: no JVD, regular rate and regular rhythm RATE: regular rate RHYTHM: regular rhythm GI: OTHER: Hyperactive bowel sounds in all 4 quadrants. Patient's abdomen does look somewhat bloated but is still soft to palpation in all quadrants and in the periumbilical region. Generalized complaints of discomfort on palpation. : COMMON NORMALS: Yes no CVA tenderness BLADDER/KIDNEY EXAM: Yes no CVA tenderness Back/Pelvis: COMMON NORMALS: no CVA tenderness, no thoracic nor lumbar tenderness and thoraco-lumbar ROM normal Extremity: COMMON NORMALS: normal to inspection, full ROM and capillary refill normal Neuro: COMMON NORMALS: patient oriented x3 SENSORIUM/ORIENTATION: Yes alert Psych: COMMON NORMALS: mental status grossly normal, Normal thought process present, cooperative, normal affect and activity/motor behavior normal THOUGHT PROCESS: Normal thought process present Skin: COMMON NORMALS: no rashes or lesions noted and no wounds GENERAL SKIN EXAM: no rashes or lesions noted Course Vital Signs: Vital signs: Vital Signs Temperature 98.7 F 07/30/23 11:46 Pulse Rate 78 07/30/23 16:11 Respiratory Rate 16 07/30/23 16:11 Blood Pressure 147/78 07/30/23 16:11 Pulse Oximetry 99 07/30/23 16:11 Oxygen Delivery Me thod Room Air 07/30/23 15:28 MDM - Abdominal Pain Medical Decision Making Patient's lab work shows no signs of anemia but there was a noticeable elevated white blood cell count. Patient was almost immediately able to provide us a stool specimen and he did test positive for lactoferrin as well as fecal occult blood. We did a CT scan of the abdomen to check for concerning signs of inflammatory bowel disease however, CT was read negative for gastrointestinal concerns. Patient did have findings of aneurysm which he was unaware of. We did discuss what an aneurysm is and I recommended he call his primary care doctor for further work-up and evaluation. Patient also has what appears to be a bladder diverticulum. Again, patient needs to follow-up with his primary care doctor regarding this. Given his physical examination and evaluation here in the emergency department as well as the history of multiple others in the home with similar symptoms, Dr. Ivy-who was consulted on this case, indicated his suspicion for C. difficile. C. difficile results have not posted at this time but, recommended patient receive treatment for this. As patient is afebrile and has not been vomiting during his evaluation here, we will attempt outpatient p.o. treatment. According to up-to-date, as patient has nonfulminant and nonsevere diagnosis of C. difficile, recommended treatment plan is metronidazole 500 3 times daily for 14 days. This medication was provided as a prescription on the patient's behalf. Informational handout about C. difficile provided as the others in the home will need to be treated as well. We discussed the contagious nature of this illness and the need for good handwashing and bleaching of common household surfaces. Patient was given strict return precautions for change or worsening condition including fever with worsening abdominal pains or bloody diarrhea. Also patient is unable to tolerate his medications or fluids to stay hydrated he needs to be seen and evaluated again. Patient verbalizes his understanding and agreement to the treatment plan. Differential Diagnosis Likely abdominal pain; Unlikely acute appendicitis, constipation, diver ticulitis, gastroenteritis, pancreatitis or small bowel obstruction Lab Data 07/30/23 13:40 07/30/23 13:40 Labs/Radiology: Laboratory Results WBC 9.23 10^3/uL (3.29-11.43) 07/30/23 13:40 RBC 5.83 10^6/uL (3.85-5.65) H 07/30/23 13:40 Hgb 17.00 g/dL (11.27-16.99) H 07/30/23 13:40 Hct 50.5 % (37-53) 07/30/23 13:40 MCV 86.6 fl (82-101) 07/30/23 13:40 MCH 29.2 pg (27-33) 07/30/23 13:40 MCHC 33.7 g/dL (30-55) 07/30/23 13:40 RDW 13.1 % (12.1-15.1) 07/30/23 13:40 Plt Count 255 10^3/cmm (157-399) 07/30/23 13:40 MPV 9.6 fL (7.4-10.4) 07/30/23 13:40 Neut % (Auto) 83.7 % 07/30/23 13:40 Lymph % (Auto) 8.5 % 07/30/23 13:40 [place] % (Auto) 5.4 % 07/30/23 13:40 Eos % (Auto) 1.8 % 07/30/23 13:40 Baso % (Auto) 0.3 % 07/30/23 13:40 Neut # (Auto) 7.72 10^3/uL (1.8-7.7) H 07/30/23 13:40 Lymph # (Auto) 0.8 10^3/uL (0.8-4.8) 07/30/23 13:40 [place] # (Auto) 0.5 10^3/uL (0.2-0.9) 07/30/23 13:40 Eos # (Auto) 0.2 10^3/uL (0.0-0.8) 07/30/23 13:40 Baso # (Auto) 0.0 10^3/uL (0.0-0.1) 07/30/23 13:40 Nucleated RBC % (auto) 0 % 07/30/23 13:40 Nucleated RBCs # 0.0 /100WBC 07/30/23 13:40 Sodium 142 mmol/L (136-145) 07/30/23 13:40 Potassium 4.2 mmol/L (3.5-5.1) 07/30/23 13:40 Chloride 105 mmol/L (98-107) 07/30/23 13:40 Carbon Dioxide 28 mmol/L (22-29) 07/30/23 13:40 Anion Gap 13.2 (5-19) 07/30/23 13:40 BUN 14 mg/dL (8-23) 07/30/23 13:40 Creatinine 0.9 mg/dL (0.7-1.2) 07/30/23 13:40 GFR Calculation 84.7 mL/min (90-130) L 07/30/23 13:40 Glucose 107 mg/dL (65-115) 07/30/23 13:40 Calculated Osmolality 295 mOsm/kg (285-295) 07/30/23 13:40 Calcium 8.8 mg/dL (8.5-10.5) 07/30/23 13:40 Total Bilirubin 0.7 mg/dL (0.15-1.2) 07/30/23 13:40 AST 18 U/L (0-40) 07/30/23 13:40 ALT 20 U/L (0-41) 07/30/23 13:40 Alkaline Phosphatase 105 U/L (40-130) 07/30/23 13:40 Total Protein 7.3 g/dL (6.6-8.7) 07/30/23 13:40 Albumin 4.4 g/dL (3.5-5.2) 07/30/23 13:40 Globulin 2.9 g/dL (1.3-4.6) 07/30/23 13:40 Lipase 29 U/L (13-60) 07/30/23 13:40 All radiology interpretation(s) finalized by discharge Discharge Plan Discharge Patient Disposition: Home Clinical Impression: Acute infectious diarrhea Condition: Stable Prescriptions: New metronidazole 500 mg tablet 500 mg PO TID 14 Days Qty: 42 0RF No Action acetaminophen [Tylenol Extra Strength] 500 mg Tablet 1,000 mg PO PRN sildenafil 100 mg tablet 100 mg PO DAILY PRN (Reason: Erectile Dysfunction) Discharge Orders: Discharge ED (Routine); Ordered 07/30/23 Ordered By: Nela Cruz Referrals: Robyn Doe MD [Primary Care Provider] - Discharge Diet: Advance as tolerated Discharge Activity: Increase activity as tolerated Patient Instructions: C. Diff (Clostridioides Difficile) Infection (ED) Activity Restrictions/Additional Instructions: Evaluation today has led us to believe you have an infection in your GI tract called Clostridium difficile or C. difficile . This is an infectious diarrhea which causes multiple rounds of diarrhea daily. It is extremely contagious which is most likely why multiple people in her household have it. We are still waiting for your final C. difficile result from your stool but, based on your history, exam, and laboratory findings we are extremely suspicious. This needs to be treated with antibiotics and I have provided you a prescription from the emergency room today. You need to start taking it immediately. It is very i mportant that you stay well-hydrated during this time as well. We will let you know if your test comes back positive as the other members of your household need to be treated at the same time should you test positive for C. difficile. If for any reason you spike a high fever, are unable to tolerate fluids or your medication due to vomiting, begin having bright red blood per rectum, or have severe worsening of abdominal pain you need to return back to the emergency department. 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
[2023-07-30 13:54] LABS: Basophils % 0.3 %; Eosinophils # 0.2 10^3/uL (0.0-0.8); Eosinophils % 1.8 %; Hematocrit 50.5 % (37-53); Lymphocytes # 0.8 10^3/uL (0.8-4.8); Lymphocytes % 8.5 %; Mean Corpuscular HGB Conc 33.7 g/dL (30-55); Mean Corpuscular Hemoglobin 29.2 pg (27-33); Mean Corpuscular Volume 86.6 fl (82-101); Mean Platelet Volume 9.6 fL (7.4-10.4); Monocytes # 0.5 10^3/uL (0.2-0.9); Monocytes % 5.4 %; Neutrophils # 7.72 10^3/uL (1.8-7.7); Neutrophils % 83.7 %; Nucleated Red Blood Cells % 0 %; Platelet Count 255 10^3/cmm (157-399); Red Blood Count 5.83 10^6/uL (3.85-5.65); Red Cell Distribution Width 13.1 % (12.1-15.1); White Blood Count 9.23 10^3/uL (3.29-11.43)
--- NOTE | 2023-07-30 14:16 | CT_ITS ---
WS: [id number] CT ABDOMEN AND PELVIS WITH CONTRAST HISTORY: v/d, abd pain TECHNIQUE: Imaging performed of the abdomen and pelvis with IV contrast. Single phase imaging of the abdomen. Coronal and sagittal reformats are submitted. All CT scans at [facility] use at [address] one of these dose optimization techniques: automated exposure control; mA and/or kV adjustment per patient size (includes targeted exams where dose is matched to clinical indication); or iterative re construction. IV CONTRAST: Omnipaque 350; 100 mL IV. Oral contrast: No DLP: 700.41 mGy.cm COMPARISON: None available. Lower thorax: Lung bases are clear. Heart is normal size. No hiatal hernia. Liver/biliary system: Normal size liver. LEFT hepatic lobe 9 mm cyst. There is an additional too smal l to characterize low-attenuation nodule in the caudate lobe. Portal vein is normal. Gallbladder: Normal. No gallstones or wall thickening. No pericholecystic fluid. Pancreas: Normal size pancreas and pancreatic duct. No adjacent inflammation. Spleen: Normal size spleen. No mass or infarct. Adrenal glands: Normal. Right kidney: Normal. Left kidney: Normal. Aorta: Moderate atherosclerosis with no aneurysm. Mildly ectatic aorta. Minimally aneurysmal aorta. C alcified and noncalcified plaque. Maximum diameter of 2.9 cm. Lymphadenopathy: None. Free fluid: None. GI tract: Nondistended stomach. No small bowel obstruction. Prior appendectomy. There are a few scatt ered distal colon diverticula. No evidence for acute diverticulitis. No submucosal edema or pericolon ic inflammation. Abdominal wall: Unremarkable abdominal wall. No hernia. Pelvis: No free fluid or adenopathy within the pelvis. There is a focal 4.4 x 2.5 cm fluid collection in the RIGHT pelvis. This is contiguous with the urinary bladder consistent with a bladder diverticu lum. No calcifications or soft tissue masses. Bones: Sclerotic foci within the femoral heads. Findings of early osteonecrosis suspected. IMPRESSION: 1. No acute abdominal or pelvic abnormalities. 2. Mild distal colonic diverticula without acute diverticulitis. 3. Prior cholecystectomy. 4. 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 5. LEFT hepatic cyst. 6. 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
[2023-07-30 14:20] LABS: Alanine Aminotransferase 20 U/L (0-41); Albumin Level 4.4 g/dL (3.5-5.2); Alkaline Phosphatase 105 U/L (40-130); Anion Gap 13.2 (5-19); Aspartate Amino Transferase 18 U/L (0-40); Blood Urea Nitrogen 14 mg/dL (8-23); Calcium 8.8 mg/dL (8.5-10.5); Carbon Dioxide 28 mmol/L (22-29); Chloride 105 mmol/L (98-107); Globulin 2.9 g/dL (1.3-4.6); Glomerular Filtration Rate 84.7 mL/min (90-130); Glucose 107 mg/dL (65-115); Lipase 29 U/L (13-60); Osmolality Calculated 295 mOsm/kg (285-295); Potassium 4.2 mmol/L (3.5-5.1); Sodium 142 mmol/L (136-145); Total Bilirubin 0.7 mg/dL (0.15-1.2); Total Protein 7.3 g/dL (6.6-8.7)
[2023-07-30] MEDS: sodium chloride 0.9% 1,000 ML 999 ML IV ×2 (14:20→14:48)
[2023-07-30] MEDS: iohexol 350 mg/mL 500 mL Btl (per mL) IV (14:32)
[2023-07-30 15:28] VITALS: BP 147/78; PULSE 78; RESP 16; O2SAT 99
[2023-07-30 16:11] VITALS: BP 147/78; PULSE 78; RESP 16; O2SAT 99
[2023-07-31 15:05] LABS: Clostridium Difficile PCR NOT DETECTED (NOT DETECTED)
== END 2023-07-30 16:12 | disposition home or self-care (01) ==
PROVIDERS: Emergency Medicine; Emergency Provider Physician Assistant; PCP Family Medicine
DX: A09 Infectious gastroenteritis and colitis, unspecified (principal); Z87.891 Personal history of nicotine dependence
CPT/HCPCS: 74177; 80053; 82274; 83630; 83690; 85025; 87045; 87177; 87209; 87427; 87449; 87493; 99284; J7030; Q9967

== ENCOUNTER → 2023-09-08 13:39 | Outpatient (BNVA) | payer MEDICARE, MEDICAID, SELFPAY | PROVIDERS: PCP Family Medicine; Referring Provider Family Medicine; Visit Provider Internal Medicine Cardiovascular Disease | DX: I35.1 Nonrheumatic aortic (valve) insufficiency (principal); I10 Essential (primary) hypertension; I71.43 Infrarenal abdominal aortic aneurysm, without rupture; Z87.891 Personal history of nicotine dependence | CPT/HCPCS: 99204 ==

== ENCOUNTER → 2024-03-16 14:24 | Outpatient (BNVA) | payer MEDICARE, MEDICAID, SELFPAY | PROVIDERS: PCP Family Medicine; Visit Provider Internal Medicine Cardiovascular Disease | DX: I71.43 Infrarenal abdominal aortic aneurysm, without rupture (principal); I10 Essential (primary) hypertension; I35.1 Nonrheumatic aortic (valve) insufficiency; Z87.891 Personal history of nicotine dependence | CPT/HCPCS: 99214 ==

== ENCOUNTER → 2024-07-04 09:59 | Outpatient (BNVA) | payer MEDICARE, MEDICAID, SELFPAY | PROVIDERS: PCP Family Medicine; Visit Provider Nurse Practitioner Family | DX: B34.9 Viral infection, unspecified (principal) | CPT/HCPCS: 87426 ==